=== PATIENT | female | born 1950 | race Caucasian/White ===

== ENCOUNTER 2016-08-21 14:25 | Emergency (ER) | payer MEDICARE, OTHER ==
[~2016-08-21] VITALS: Ht 157.5 cm; Wt 71.2 kg
[~2016-08-21 14:25] MED LIST: ACET65TA OR; ASPI81TA3 OR; HCTZ PO; HYDROCODONE PO; PAXI10TA OR; PERC5TAB8 OR
[2016-08-21] MEDS ORDERED: HYDR25TAB PO (14:45)
[2016-08-21] MEDS ORDERED: PAXI30TA11 PO ×3 (14:45→15:45)
[2016-08-21] MEDS ORDERED: METO50TA2 PO (14:45)
[2016-08-21] MEDS ORDERED: SIMV40TA2 PO (14:45)
[2016-08-21 15:47] VITALS: BP 122/66
== END 2016-08-21 15:48 | disposition home or self-care (01) ==
LOC: M ED 15:14
DX: Z76.0 Encounter for issue of repeat prescription (principal); F33.9 Major depressive disorder, recurrent, unspecified; F41.9 Anxiety disorder, unspecified; I10 Essential (primary) hypertension; K21.9 Gastro-esophageal reflux disease without esophagitis; M54.5 Low back pain; K44.9 Diaphragmatic hernia without obstruction or gangrene; Z79.899 Other long term (current) drug therapy; Z79.82 Long term (current) use of aspirin; Z87.891 Personal history of nicotine dependence

== ENCOUNTER 2016-09-06 12:19 | Emergency (ER) | payer MEDICARE ==
[~2016-09-06] VITALS: Ht 157.5 cm; Wt 70.8 kg
[~2016-09-06 12:19] MED LIST changes: +HYDR25TAB PO; +METO50TA2 PO; +PAXI30TA11 PO; +SIMV40TA2 PO
[2016-09-06] MEDS ORDERED: FLUORESCEIN OPHTH 1 MG STRIP OS ONE (12:45)
[2016-09-06] MEDS ORDERED: TETRACAINE 0.5% OPHTH SOLN 4ML OS ONE (12:45)
[2016-09-06] MEDS ORDERED: ERYTOIN8 OS (13:11)
[2016-09-06] MEDS ORDERED: PARO30TA PO (13:11)
[2016-09-06] MEDS ORDERED: ERYTHROMYCIN OPHTH OINT OS ONE (13:15)
[2016-09-06 13:22] VITALS: BP 131/89
== END 2016-09-06 13:23 | disposition home or self-care (01) ==
LOC: M ED 13:13
DX: Z76.0 Encounter for issue of repeat prescription (principal); S05.02XD Injury of conjunctiva and corneal abrasion without foreign body, left eye, subsequent encounter; F17.210 Nicotine dependence, cigarettes, uncomplicated; X58.XXXD Exposure to other specified factors, subsequent encounter

== ENCOUNTER → 2020-02-26 | Outpatient (CLI) | payer MEDICARE, OTHER ==
[~2020-02-26] MED LIST changes: +ANAS1TAB2 PO; +ERYTOIN8 OS; -METO50TA2 PO; +METO50TA7 PO; +PARO30TA65 PO; -SIMV40TA2 PO; +SIMV40TA20 PO
--- NOTE | 2020-03-12 14:48 | REPMRS ---
Patient History The patient states she has not had a clinical breast exam in over a year. Patient has history of cancer in the right breast at age 69 and has history of cancer in the right breast at age 68. Family history of breast cancer at age 50 or over in sister, breast cancer in niece. Malignant excisional biopsy of the right breast, 2019. Radiation therapy of the right breast, 2019. Taking unspecified hormones for 1 year. Digital Woman Screen Mammo: February 26, 2020 - Exam #: [id number] Bilateral CC and MLO view(s) were taken. Technologist: Chata Mcarthur, Technologist Prior study comparison: August 02, 2018, right breast diagnostic unilateral mammo, performed at [address] January 24, 2018, bilateral digital mammo screening bilat, performed at [address] August 06, 2009, bilateral digital mammo screening bilat, performed at [facility]. March 30, 2006, bilateral screening mammogram, performed at [facility]. FINDINGS: There are scattered fibroglandular densities. The Volpara volumetric breast density category is:B. There are stable post treatment changes in the right breast. There has been no change in the appearance of the mammogram from the prior studies. There is a mild amount of scattered fibroglandular density which is fairly symmetric. There is no interval development of dominant mass, architectural distortion, or grouped microcalcification suggestive of malignancy. 3-D tomosynthesis shows no additional findings. Assessment: BI-RADS/ACR category 2 mammogram. Benign Findings. Recommendation Routine screening mammogram of both breasts in 1 year (for women over age 40). This mammogram was interpreted with the aid of an FDA-approved computer-aided dectection system. Electronically Signed By: Davian Arias MD 03/12/20 [id number]
== END ==
LOC: M WHC 12:24
PROVIDERS: ATTEND Internal Medicine Hematology & Oncology
DX: Z12.31 Encounter for screening mammogram for malignant neoplasm of breast (principal); Z85.3 Personal history of malignant neoplasm of breast

== ENCOUNTER → 2020-03-04 | Outpatient (CLI) | payer MEDICARE, OTHER ==
--- NOTE | 2020-03-04 13:12 | REP ---
INDICATION: LOW DOSE LUNG SCREENING/BREAST CANCER COMPARISON: None. TECHNIQUE: Axial noncontrast images from the thoracic inlet to the upper abdomen using low-dose lung screening technique (LDCT). FINDINGS: Bilateral lung de la garza are well aerated and essentially symmetric/clear. No consolidation, suspicious nodule or mass lesion. Tracheobronchial tree is patent. No effusion or pneumothorax. IMPRESSION: Lung-RADS category 1. Management recommendations include annual low-dose CT surveillance. <Electronically signed by Darion Bray > 03/04/20 [id number]
== END ==
LOC: M RAD 12:40
PROVIDERS: ATTEND Internal Medicine Hematology & Oncology
DX: Z12.2 Encounter for screening for malignant neoplasm of respiratory organs (principal); C50.919 Malignant neoplasm of unspecified site of unspecified female breast; Z87.891 Personal history of nicotine dependence

== ENCOUNTER → 2020-04-08 | Outpatient (CLI) | payer MEDICAID, MEDICARE, OTHER ==
[~2020-04-08] MED LIST changes: +DEBR6.5S4 OTIC; +HYDR-3490 PO; -HYDR25TAB PO
--- NOTE | 2020-04-08 16:21 | DEXAMM ---
INDICATION: HX BREAST CA. Status post bilateral hip replacement. COMPARISON: Comparison study April 04, 2018 and August 06, 2009.. TECHNIQUE: Bone density was measured using dual-energy x-ray absorptionmetry (DEXA). FINDINGS: AP SPINE L1-L4 BMD 1.159 g/cm2 Young Adult T-Score -0.3 Age Matched Z-Score 1.4. LT FOREARM, TOTAL BMD 0.825 g/cm2 Young Adult T-Score -0.6 Age Matched Z-Score 1.2. IMPRESSION: There is normal bone density of the spine. There is low bone density of the left forearm. The density of the spine has decreased 9.2% since the initial exam on August 06, 2009. The density of the spine increased 17.9% since most recent exam on April 04, 2018. FOLLOW-UP: Recommendation for the next bone density exam: 2 years. <Electronically signed by Davian Arias > 04/08/20 [id number]
== END ==
LOC: M WHC 11:15
PROVIDERS: ATTEND Internal Medicine Hematology & Oncology
DX: M85.832 Other specified disorders of bone density and structure, left forearm (principal); Z85.3 Personal history of malignant neoplasm of breast; Z96.643 Presence of artificial hip joint, bilateral

== ENCOUNTER → 2020-05-27 | Outpatient (REF) | payer MEDICARE, MEDICAID | LOC: M SFHCWAGY 12:57 | PROVIDERS: ATTEND Nurse Practitioner Women's Health | DX: Z12.4 Encounter for screening for malignant neoplasm of cervix (principal); R87.615 Unsatisfactory cytologic smear of cervix | CPT/HCPCS: 87624; G0101; G0123 ==

== ENCOUNTER → 2020-06-23 | Outpatient (REF) | payer MEDICARE, MEDICAID ==
[2020-06-23 12:55] LABS: APPEARANCE, URINE CLEAR (CLEAR); BACTERIA, URINE AUTO NEGATIVE (NEGATIVE); BILIRUBIN, URINE AUTO NEGATIVE (NEGATIVE); BLOOD, URINE BLOOD 1+ (NEGATIVE); COLOR, URINE YELLOW (YELLOW); GLUCOSE, URINE (UA) AUTO NEGATIVE (NEGATIVE); KETONE, URINE AUTO NEGATIVE (NEGATIVE); LEUKOCYTE ESTERASE, URINE AUTO NEGATIVE (NEGATIVE); MUCUS, URINE SMALL (NEGATIVE); NITRITE, URINE AUTO NEGATIVE (NEGATIVE); PROTEIN, URINE AUTO NEGATIVE (NEGATIVE); RBC, URINE AUTO 7 /HPF (0-3); SQUAMOUS EPITHELIAL CELL UR AU 0 /HPF (0-6); UROBILINOGEN, URINE AUTO 0.2 mg/dL (0.0-2.0); WBC, URINE AUTO 0 /HPF (0-3)
[2020-06-23 14:21] LABS: BASO # 0.1 10^3/uL (0.0-0.2); BASO % 1.3 % (0.0-1.0); EOS # 0.2 10^3/uL (0.0-0.5); EOS % 4.9 % (0.0-3.0); HEMATOCRIT 38.6 % (36.0-47.0); HEMOGLOBIN 12.3 g/dl (12.0-15.5); LYMPH # 1.7 10^3/uL (1.5-5.0); LYMPH % 37.9 % (24.0-44.0); MEAN CORPUSCULAR HEMOGLOBIN 27.9 pg (27.0-33.0); MEAN CORPUSCULAR HGB CONC 31.9 g/dl (32.0-36.5); MEAN CORPUSCULAR VOLUME 87.5 fl (80.0-96.0); MONO # 0.4 10^3/uL (0.0-0.8); MONO % 9.3 % (2.0-8.0); NEUTROPHILS # 2.1 10^3/uL (1.5-8.5); NEUTROPHILS % 46.6 % (36.0-66.0); PLATELET COUNT, AUTOMATED 215 10^3/uL (150-450); RED BLOOD COUNT 4.41 10^6/uL (4.00-5.40); WHITE BLOOD COUNT 4.5 10^3/uL (4.0-10.0)
[2020-06-23 14:50] LABS: ALBUMIN 3.7 GM/DL (3.2-5.2); ALT/SGPT 20 U/L (12-78); BILIRUBIN,TOTAL 0.4 MG/DL (0.2-1.0); BLOOD UREA NITROGEN 17 MG/DL (7-18); CALCIUM LEVEL 8.7 MG/DL (8.8-10.2); CARBON DIOXIDE LEVEL 30 MEQ/L (21-32); CHLORIDE LEVEL 110 MEQ/L (98-107); CHOLESTEROL LEVEL 172 MG/DL (<200); CHOLESTEROL RISK RATIO 2.774 (<5); CREATININE FOR GFR 0.66 MG/DL (0.55-1.30); FREE T4 0.97 NG/DL (0.76-1.46); GLOMERULAR FILTRATION RATE > 60.0 (>45); GLUCOSE, FASTING 105 MG/DL (70-100); HDL CHOLESTEROL 62 MG/DL (>40); LDL CHOLESTEROL 94 MG/DL (<100); NON-HDL-C 110 MG/DL; POTASSIUM SERUM 4.4 MEQ/L (3.5-5.1); SODIUM LEVEL 144 MEQ/L (136-145); TOTAL 25(OH) VITAMIN D 16.6 NG/ML (30.0-100.0); TOTAL PROTEIN 6.7 GM/DL (6.4-8.2); TRIGLYCERIDES LEVEL 79 MG/DL (<150)
[2020-06-23 14:54] LABS: HEMOGLOBIN A1c 5.6 %
== END ==
LOC: M LAB REF 12:28
PROVIDERS: ATTEND Nurse Practitioner Family
DX: J44.9 Chronic obstructive pulmonary disease, unspecified (principal); F17.200 Nicotine dependence, unspecified, uncomplicated; E78.5 Hyperlipidemia, unspecified; I10 Essential (primary) hypertension; Z79.899 Other long term (current) drug therapy

== ENCOUNTER → 2020-07-06 | Outpatient (CLI) | payer MEDICARE, MEDICAID | LOC: M LABSMTC 09:43 | PROVIDERS: ATTEND Anesthesiology | DX: Z01.812 Encounter for preprocedural laboratory examination (principal); Z11.52 Encounter for screening for COVID-19 ==

== ENCOUNTER → 2020-09-07 | Outpatient (CLI) | payer MEDICARE, MEDICAID | LOC: M LABSMTC 08:00 | PROVIDERS: ATTEND Anesthesiology | DX: Z11.52 Encounter for screening for COVID-19 (principal) ==

== ENCOUNTER 2020-09-12 13:02 | Day surgery (SDC) | payer MEDICARE, MEDICAID ==
[~2020-09-12] VITALS: Ht 157.5 cm; Wt 64.9 kg
[~2020-09-12 13:02] MED LIST changes: +NS 1,000 ML IV ONE
--- NOTE | 2020-09-12 14:57 | ROOR ---
Patient Name: Aletha Rae Procedure Date: 09/12/2020 2:17 PM Date of : 1950 Age: 70 Room: [facility] Gender: Female Note Status: Finalized Procedure: Colonoscopy Indications: Screening for colorectal malignant neoplasm Providers: Masoud Kaiser MD Referring MD: Beata Ventura NP Requesting Provider: Medicines: Monitored Anesthesia Care Complications: No immediate complications. Procedure: Pre-Anesthesia Assessment: - The heart rate, respiratory rate, oxygen saturations, blood pressure, adequacy of pulmonary ventilation, and response to care were monitored throughout the procedure. The Colonoscope was introduced through the anus and advanced to the terminal ileum, with identification of the appendiceal orifice and IC valve. The colonoscopy was performed without difficulty. The patient tolerated the procedure well. The quality of the bowel preparation was good. Findings: The digital rectal exam findings include decreased sphincter tone. A 5 mm polyp was found in the splenic flexure. The polyp was sessile. The polyp was removed with a hot snare. Resection and retrieval were complete. Two semi-pedunculated polyps were found in the distal sigmoid colon. The polyps were 5 to 10 mm in size. These polyps were removed with a hot snare. Resection and retrieval were complete. Internal hemorrhoids were found during retroflexion. The hemorrhoids were moderate. A few medium-mouthed diverticula were found in the sigmoid colon. The exam was otherwise without abnormality on direct and retroflexion views. Impression: - Decreased sphincter tone found on digital rectal exam. - One 5 mm polyp at the splenic flexure, removed with a hot snare. Resected and retrieved. - Two 5 to 10 mm polyps in the distal sigmoid colon, removed with a hot snare. Resected and retrieved. - Mild Diverticulosis in the sigmoid colon. - Moderate Internal hemorrhoids. - The examination was otherwise normal on direct and retroflexion views. Recommendation: - Repeat colonoscopy in 3 - 5 years for surveillance based on pathology results. - Telephone endoscopist for pathology results in 2 weeks. Procedure Code(s): --- Professional --- 88972, Colonoscopy, flexible; with removal of tumor(s), polyp(s), or other lesion(s) by snare technique Diagnosis Code(s): --- Professional --- K57.30, Diverticulosis of large intestine without perforation or abscess without bleeding K64.8, Other hemorrhoids K62.89, Other specified diseases of anus and rectum Z12.11, Encounter for screening for malignant neoplasm of colon K63.5, Polyp of colon CPT copyright 2019 [employer]. All rights reserved. The codes documented in this report are preliminary and upon large sheetfed press operator review may be revised to meet current compliance requirements. Masoud Kaiser MD Masoud Kaiser MD 09/12/2020 2:57:08 PM Electronically signed by Masoud Kaiser MD Number of Addenda: 0 Note Initiated On: 09/12/2020 2:17 PM Estimated Blood Loss: Estimated blood loss: none.
[2020-09-12 15:12] VITALS: BP 145/70
== END 2020-09-12 15:14 | disposition home or self-care (01) ==
LOC: M OPP 13:02
PROVIDERS: ATTEND Internal Medicine Gastroenterology
DX: Z12.11 Encounter for screening for malignant neoplasm of colon (principal); K57.30 Diverticulosis of large intestine without perforation or abscess without bleeding; K63.5 Polyp of colon; K64.8 Other hemorrhoids; K62.89 Other specified diseases of anus and rectum; F17.210 Nicotine dependence, cigarettes, uncomplicated; Z85.3 Personal history of malignant neoplasm of breast; Z92.3 Personal history of irradiation; Z79.899 Other long term (current) drug therapy

== ENCOUNTER 2020-12-24 11:38 | Observation (INO) | payer MEDICARE, MEDICAID ==
[~2020-12-24] VITALS: Ht 157.5 cm; Wt 64.5 kg
[~2020-12-24 11:38] MED LIST changes: -NS 1,000 ML IV ONE
--- OUTSIDE RECORDS SUMMARY | 2020-12-24 11:50 | CCD ---
Author Author [facility] Organization [facility] Address Unknown Phone Unavailable Care Team Providers Care Order Entry Clerk Name Role Phone Alpa Henriquez MD Unavailable Unavailable Alpa Henriquez MD Unavailable Unavailable Alpa Henriquez MD Unavailable Unavailable Alpa Henriquez MD Unavailable Unavailable Alpa Henriquez MD Unavailable Unavailable Alpa Henriquez MD Unavailable Unavailable Alpa Henriquez MD Unavailable Unavailable Alpa Henriquez MD Unavailable Unavailable Alpa Henriquez MD Unavailable Unavailable Alpa Henriquez MD Unavailable Unavailable Alpa Henriquez MD Unavailable Unavailable Alpa Henriquez MD Unavailable Unavailable Alpa Henriquez MD Unavailable Unavailable Alpa Henriquez MD Unavailable Unavailable Alpa Henriquez MD Unavailable Unavailable Alpa Henriquez MD Unavailable Unavailable Alpa Henriquez MD Unavailable Unavailable Alpa Henriquez MD Unavailable Unavailable Alpa Henriquez MD Unavailable Unavailable Alpa Henriquez MD Unavailable Unavailable Alpa Henriquez MD Unavailable Unavailable Alpa Henriquez MD Unavailable Unavailable Alpa Henriquez MD Unavailable Unavailable Alpa Henriquez MD Unavailable Unavailable Alpa Henriquez MD Unavailable Unavailable Alpa Henriquez MD Unavailable Unavailable Alpa Henriquez MD Unavailable Unavailable Alpa Henriquez MD Unavailable Unavailable Alpa Henriquez MD Unavailable Unavailable Alpa Henriquez MD Unavailable Unavailable Alpa Henriquez MD Unavailable Unavailable Alpa Henriquez MD Unavailable Unavailable Alpa Henriquez MD Unavailable Unavailable Alpa Henriquez MD Unavailable Unavailable Alpa Henriquez MD Unavailable Unavailable Alpa Henriquez MD Unavailable Unavailable Alpa Henriquez MD Unavailable Unavailable Alpa Henriquez MD Unavailable Unavailable Alpa Henriquez MD Unavailable Unavailable Alpa Henriquez MD Unavailable Unavailable Alpa Henriquez MD Unavailable Unavailable Alpa Henriquez MD Unavailable Unavailable Alpa Henriquez MD Unavailable Unavailable Alpa Henriquez MD Unavailable Unavailable Alpa Henriquez MD Unavailable Unavailable Alpa Henriquez MD Unavailable Unavailable Alpa Henriquez MD Unavailable Unavailable Alpa Henriquez MD Unavailable Unavailable Alpa Henriquez MD Unavailable Unavailable Alpa Henriquez MD Unavailable Unavailable lApa Henriquez MD Unavailable Unavailable Alpa Henriquez MD Unavailable Unavailable Alpa Henriquez MD Unavailable Unavailable Alpa Henriquez MD Unavailable Unavailable Alpa Henriquez MD Unavailable Unavailable Alpa Henriquez MD Unavailable Unavailable Alpa Henriquez MD Unavailable Unavailable Alpa Henriquez MD Unavailable Unavailable Alpa Henriquez MD Unavailable Unavailable Alpa Henriquez MD Unavailable Unavailable Alpa Henriquez MD Unavailable Unavailable Alpa Henriquez MD Unavailable Unavailable Alpa Henriquez MD Unavailable Unavailable Alpa Henriquez MD Unavailable Unavailable Alpa Henriquez MD Unavailable Unavailable Alpa Henriquez MD Unavailable Unavailable Alpa Henriquez MD Unavailable Unavailable Alpa Henriquez MD Unavailable Unavailable Alpa Henriquez MD Unavailable Unavailable Alpa Henriquez MD Unavailable Unavailable Alpa Henriquez MD Unavailable Unavailable Alpa Henriquez MD Unavailable Unavailable Alpa Henriquez MD Unavailable Unavailable Alpa Henriquez MD Unavailable Unavailable Alpa Henriquez MD Unavailable Unavailable Alpa Henriquez MD Unavailable Unavailable Alpa Henriquez MD Unavailable Unavailable Alpa Henriquez MD Unavailable Unavailable Alpa Henriquez MD Unavailable Unavailable Alpa Henriquez MD Unavailable Unavailable Alpa Henriquez MD Unavailable Unavailable Alpa Henriquez MD Unavailable Unavailable Alpa Henriquez MD Unavailable Unavailable Alpa Henriquez MD Unavailable Unavailable Alpa Henriquez MD Unavailable Unavailable Alpa Henriquez MD Unavailable Unavailable Alpa Henriquez MD Unavailable Unavailable Alpa Henriquez MD Unavailable Unavailable Alpa Henriquez MD Unavailable Unavailable Alpa Henriquez MD Unavailable Unavailable Alpa Henriquez MD Unavailable Unavailable Alpa Henriquez MD Unavailable Unavailable Alpa Henriquez MD Unavailable Unavailable Lorenzo, A Beata OB/GYN PHYSICIAN Unavailable Unavailable Lorenzo, A Beata OB/GYN PHYSICIAN Unavailable Unavailable Lorenzo, A Beata OB/GYN PHYSICIAN Unavailable Unavailable Lorenzo, A Beata OB/GYN PHYSICIAN Unavailable Unavailable Lorenzo, A Beata OB/GYN PHYSICIAN Unavailable Unavailable Lorenzo, A Beata OB/GYN PHYSICIAN Unavailable Unavailable Purchase, A Beata OB/GYN PHYSICIAN Unavailable Unavailable Purchase, A Beata OB/GYN PHYSICIAN Unavailable Unavailable Purchase, A Beata OB/GYN PHYSICIAN Unavailable Unavailable Purchase, A Beata OB/GYN PHYSICIAN Unavailable Unavailable Purchase, A Ebata OB/GYN PHYSICIAN Unavailable Unavailable Purchase, A Beata OB/GYN PHYSICIAN Unavailable Unavailable Purchase, A Beata OB/GYN PHYSICIAN Unavailable Unavailable Purchase, A Beata OB/GYN PHYSICIAN Unavailable Unavailable Purchase, A Beata OB/GYN PHYSICIAN Unavailable Unavailable Purchase, A Beata OB/GYN PHYSICIAN Unavailable Unavailable Purchase, A Beata OB/GYN PHYSICIAN Unavailable Unavailable Purchase, A Beata OB/GYN PHYSICIAN Unavailable Unavailable Purchase, A Beata OB/GYN PHYSICIAN Unavailable Unavailable Purchase, A Beata OB/GYN PHYSICIAN Unavailable Unavailable Purchase, A Beata OB/GYN PHYSICIAN Unavailable Unavailable Purchase, A Beata OB/GYN PHYSICIAN Unavailable Unavailable Purchase, A Beata OB/GYN PHYSICIAN Unavailable Unavailable Purchase, A Beata OB/GYN PHYSICIAN Unavailable Unavailable Purchase, A Beata OB/GYN PHYSICIAN Unavailable Unavailable Purchase, A Beata OB/GYN PHYSICIAN Unavailable Unavailable Purchase, A Beata OB/GYN PHYSICIAN Unavailable Unavailable Purchase, A Beata OB/GYN PHYSICIAN Unavailable Unavailable Purchase, A Beata OB/GYN PHYSICIAN Unavailable Unavailable Purchase, A Beata OB/GYN PHYSICIAN Unavailable Unavailable Purchase, A Beata OB/GYN PHYSICIAN Unavailable Unavailable Mccall, Clari [employer] Unavailable Unavailable Mccall, Clari [employer] Unavailable Unavailable Mccall, Clari [employer] Unavailable Unavailable Mccall, Clari [employer] Unavailable Unavailable Mccall, Clari [employer] Unavailable Unavailable Mccall, Clari [employer] Unavailable Unavailable Mccall, Clari [employer] Unavailable Unavailable Mccall, Clari [employer] Unavailable Unavailable Mccall, Clari [employer] Unavailable Unavailable Mccall, Clari [employer] Unavailable Unavailable Mccall, Clari [employer] Unavailable Unavailable Mccall, Clari [employer] Unavailable Unavailable Mccall, Clari [employer] Unavailable Unavailable Mccall, Clari [employer] Unavailable Unavailable Mccall, Clari [employer] Unavailable Unavailable Mccall, Clari [employer] Unavailable Unavailable Mccall, Clari [employer] Unavailable Unavailable Mccall, Clari [employer] Unavailable Unavailable Mccall, Clari [employer] Unavailable Unavailable Mccall, Clari [employer] Unavailable Unavailable Mccall, Clari [employer] Unavailable Unavailable Mccall, Clari [employer] Unavailable Unavailable Mccall, Clari [employer] Unavailable Unavailable Mccall, Clari [employer] Unavailable Unavailable Mccall, Clari [employer] Unavailable Unavailable Mccall, Clari [employer] Unavailable Unavailable Mccall, Clari [employer] Unavailable Unavailable Mccall, Clari [employer] Unavailable Unavailable Mccall, Clari [employer] Unavailable Unavailable Mccall, Clari [employer] Unavailable Unavailable Mccall, Clari [employer] Unavailable Unavailable Mccall, Clari [employer] Unavailable Unavailable Mccall, Clari [employer] Unavailable Unavailable Mccall, Clari [employer] Unavailable Unavailable Mccall, Clari [employer] Unavailable Unavailable Mccall, Clari [employer] Unavailable Unavailable Mccall, Clari [employer] Unavailable Unavailable Mccall, Clari [employer] Unavailable Unavailable Mccall, Clari [employer] Unavailable Unavailable Mccall, Clari [employer] Unavailable Unavailable Mccall, Clari [employer] Unavailable Unavailable Mccall, Clari [employer] Unavailable Unavailable Mccall, Clari [employer] Unavailable Unavailable Mccall, Clari [employer] Unavailable Unavailable Mccall, Clari [employer] Unavailable Unavailable Mccall, Clari [employer] Unavailable Unavailable Mccall, Clari [employer] Unavailable Unavailable Mccall, Clari [employer] Unavailable Unavailable Mccall, Clari [employer] Unavailable Unavailable Mccall, Clari [employer] Unavailable Unavailable Mccall, Clari [employer] Unavailable Unavailable Mccall, Clari [employer] Unavailable Unavailable Mccall, Clari [employer] Unavailable Unavailable Mccall, Clari [employer] Unavailable Unavailable Mccall, Clari [employer] Unavailable Unavailable Mccall, Clari [employer] Unavailable Unavailable Mccall, Clari [employer] Unavailable Unavailable Mccall, Clari [employer] Unavailable Unavailable Mccall, Clari [employer] Unavailable Unavailable Mccall, Clari [employer] Unavailable Unavailable Mccall, Clari [employer] Unavailable Unavailable Mccall, Clari [employer] Unavailable Unavailable Mccall, Clari [employer] Unavailable Unavailable Mccall, Clari [employer] HAND[employer] Unavailable Unavailable Mccall, Clari D[employer] HANDS Unavailable Unavailable Mccall, Clari [employer] Unavailable Unavailable Mccall, Clari [employer] Unavailable Unavailable Mccall, Clari [employer] Unavailable Unavailable Mccall, Clari [employer] Unavailable Unavailable Re-disclosure Warning The records that you are about to access may contain information from federally-assisted alcohol or drug abuse programs. If such information is present, then the following federally mandated warning applies: This information has been disclosed to you from records protected by federal confidentiality rules (42 CFR part 2). The federal rules prohibit you from making any further disclosure of this information unless further disclosure is expressly permitted by the written consent of the person to whom it pertains or as otherwise permitted by 42 CFR part 2. A general authorization for the release of medical or other information is NOT sufficient for this purpose. The Federal rules restrict any use of the information to criminally investigate or prosecute any alcohol or drug abuse patient.The records that you are about to access may contain highly sensitive health information, the redisclosure of which is protected by Article 27-F of the [facility] Public Health law. If you continue you may have access to information: Regarding HIV / AIDS; Provided by facilities licensed or operated by the [facility] Office of Mental Health; or Provided by the [facility] Office for People With Developmental Disabilities. If such information is present, then the following [facility] mandated warning applies: This information has been disclosed to you from confidential records which are protected by state law. State law prohibits you from making any further disclosure of this information without the specific written consent of the person to whom it pertains, or as otherwise permitted by law. Any unauthorized further disclosure in violation of state law may result in a fine or long-term sentence or both. A general authorization for the release of medical or other information is NOT sufficient authorization for further disc losure. Allergies and Adverse Reactions Type Description Substance Reaction Status Data Source(s ) Propensity to adverse reactions NO KNOWN ALLERGIES NO KNOWN ALLERGIES [facility] Encounters Encounter Providers Location Date Indications Data Source(s ) Jose Henriquez MD: [address] [place] [address], Ph. Attender: Jose Henriquez MD [facility] Medical 06/23/2020 12:00:00 AM EDT CHRIS ([facility]) ( NPGYN) [facility] MEDICAL RECORDS TECH [address] [place] [address] 05/27/2020 12:00:00 AM EDT eCW1 ([facility]) [facility] [address] [place] [address], Ph. Attender: Beata RAPP [facility] Medical 05/06/2020 12:00:00 AM EST CHRIS ([facility]) [facility] [address] [place] [address], Ph. Attender: Beata RAPP [facility] Medical 05/06/2020 12:00:00 AM EST CHRIS ([facility]) Outpatient Attender: Clari Mccall [facility] 12/24/2019 01:03:01 PM EDT [facility] Immunizations Vaccine Date Status Description Data Source(s) New in 2011. IIV4 05/06/2020 01:04:00 PM EST completed 10.5 mL [facility] ([facility]) New in 2011. IIV4 05/06/2020 01:04:00 PM EST completed .5 mL [facility] ([facility]) Medications Medication Brand Name Start Date Product Form Dose Route Admi nistrative Instructions Pharmacy Instructions Status Indications Reaction Description Data Source(s) Magnesium Hydroxide 80 MG/ML Oral Suspension Milk Of Magnesi a 05/20/2020 12:00:00 AM EST ORAL active M EDENT ([facility], ) Suprep Bowel Prep Kit Suprep Bowel Prep Kit 05/20/2020 12:00:00 AM EST active MEDENT ([facility], ) Insurance Providers Payer name Policy type / Coverage type Policy ID Covered alliance party ID Covered alliance party's relationship to novoa Policy [place] Plan Information [facility] I [id number] Self [id number] Medicaid P [id number] S [id number] MEDICAID M [id number] Self [id number] [facility] [id number] SP [id number] [facility]LY [facility] COMMUNITY PLAN MCDO [id number] SP [id number] [facility] Comm Plan Medicaid F [id number] SELF [id number] [facility] [id number] SP [id number] [facility] Comm Plan Medicaid F [id number] SELF [id number] MEDICARE [id number] SP [id number] A MEDICARE [id number] SP [id number] Managed Care BCBS S [id number] S [id number] Self Pay O none S none SELF PAY UNAVAILABLE SP UNAVAILA BLE BLUE CROSS MALHOTRA PLAN [id number] SP [id number] MEDICAID [id number] SP [id number] [place] [id number] MEDICARE [id number] SP [id number] [place] [id number] SP [id number] [place] [id number] SP [id number] COMMUNITY PLAN MCDO [id number] SP [id number] MEDICAID UNAVAILABLE UNAVAILA BLE MEDICARE [id number] SP [id number] [facility] O UNAVAILABLE [id number] C UNAVAILABLE [facility]) P [id number] S [id number] MEDICAID P [id number] S [id number] Problems, Conditions, and Diagnoses Code Display Name Description Problem Type Effective Dates Data Source(s) Z85.3 [id number] History of right breast cancer Problem 05/27/2020 12:00:00 AM EDT eCW1 ([facility]) Z90.710 [id number] Hx of hysterectomy Problem 05/27/2020 12:00: 00 AM EDT eCW1 ([facility]) Z85.44 [id number] History of cancer of vulva Problem 12:00:00 AM EDT eCW1 ([facility]) [id number] Essential hypertension Essential hypertension Problem 05/20/2020 12:00:00 AM EST SID[facility]ARTH ([facility]) [id number] Hypertensive disorder Hypertensive Disorder Problem 12/27/2019 05:31:34 PM EDT CHRIS ([facility]) [id number] Hyperlipidemia Hyperlipidemia Problem 12/27/2019 05:31: 34 PM EDT CHRIS ([facility]) [id number] Hypertensive disorder Hypertensive Disorder Problem 12/27/2019 05:31:34 PM EDT CHRIS ([facility]) [id number] Hyperlipidemia Hyperlipidemia Problem 12/27/2019 05:31: 34 PM EDT CHR[facility] ([facility]) [id number] SNOMED CT Concept SNOMED CT Concept Problem 12/26 05:31:33 PM EDT CHRIS ([facility]) [id number] Depressive disorder Depressive Disorder Problem 1 05:31:33 PM EDT [facility] ([facility]) [id number] SNOMED CT Concept SNOMED CT Concept Problem 12/26 05:31:33 PM EDT CHRIS ([facility]) [id number] Depressive disorder Depressive Disorder Problem 1 05:31:33 PM EDT BES[facility] ([facility]) Surgeries/Procedures Procedure Description Date Indications Data Source(s) Colonoscopy W/ Poly 09/12/2020 12:00:00 AM EDT [facility] ([facility], ) Results ID Date Data Source [id number] 09/12/2020 02:31:00 PM EDT [facility] ([facility]) Name Value Range Interpretation Code Description Data Mirella rce(s) Supporting Document(s) Surgical pathology study Laboratory test result [facility] ([facility]) FINAL DIAGNOSIS A - Colon, splenic flexure polyp, polypectomy: Hyperplastic polyps. B - Colon, sigmoid polyps, polypectomy: One fragment of tubular adenoma. Hyperplastic polyp also present. 09/17/2020 - 954 CLINICAL DIAGNOSIS Screening 09/16/2020 - 1337 GROSS DIAGNOSIS A - Received in formalin labeled "splenic flexure polyp" and consists of one sol fragment measuring 0.3 x 0.2 x 0.2 cm. All in one. B - Received in formalin labeled "sigmoid polyps" and consists of two sol polypoid fragments measuring 0.7 x 0.5 x 0.4 cm. in aggregate. All in one. -SVY 09/16/20201337 Signed LAURA KEVIN MD 09/17/2020 1155 ID Date Data Source [id number] 09/07/2020 08:00:00 AM EDT [facility] Name Value Range Interpretation Code Description Data Mirella rce(s) Supporting Document(s) SARS-CoV-2 (COVID-19) RNA [Presence] in Respiratory specimen by AMINATA with probe detection Not Detected [facility] This lab was ordered by [facility] and reported by [facility]. ID Date Data Source [id number] 07/06/2020 09:40:00 AM EDT [facility] Name Value Range Interpretation Code Description Data Mirella rce(s) Supporting Document(s) SARS-CoV-2 (COVID-19) RNA [Presence] in Respiratory specimen by AMINATA with probe detection Not Detected [facility] This lab was ordered by [facility] and reported by [facility]. ID Date Data Source [id number] 06/23/2020 08:37:00 AM EDT [facility] ([facility]) Name Value Range Interpretation Code Description Data Mirella rce(s) Supporting Document(s) ID Date Data Source [id number] 06/23/2020 08:37:00 AM EDT CHRIS ([facility]) Name Value Range Interpretation Code Description Data Mirella rce(s) Supporting Document(s) estimated average glucose 114 mg/dL 60-110 Above high norm al Estimated Average Glucose [facility] ([facility]) Hemoglobin A1c/Hemoglobin.total in Blood 5.6 % Hemoglobin a1C [facility]) ID Date Data Source [id number] 06/23/2020 08:37:00 AM EDT [facility] ([facility]) Name Value Range Interpretation Code Description Data Mirella rce(s) Supporting Document(s) total 25(oh) vitamin D 16.6 NG/mL 30.0-100.0 Below low normal T otal 25(Oh) Vitamin D [facility]) ID Date Data Source [id number] 06/23/2020 08:37:00 AM EDT [facility]) Name Value Range Interpretation Code Description Data Mirella rce(s) Supporting Document(s) thyroid stimulating hormone 2.110 uIU/mL 0.358-3.740 Thyroid Stimulating Hormone [facility]) free T4 0.97 NG/dL 0.76-1.46 Free T4 [facility]) ID Date Data Source [id number] 06/23/2020 08:37:00 AM EDT [facility]) Name Value Range Interpretation Code Description Data Mirella rce(s) Supporting Document(s) HDL cholesterol 62 mg/dL >40 HDL Cholesterol ATHE NA ([facility]) triglycerides level 79 mg/dL <150 Triglycerides Le dilia CHRIS ([facility]) cholesterol level 172 mg/dL <200 Cholesterol Level CHRIS ([facility]) cholesterol risk ratio <5 Cholesterol R isk Ratio [facility] ([facility]) Cholesterol in LDL [Mass/volume] in Serum or Plasma 94 mg/dL <1 00 LDL Cholesterol [facility] ([facility]) non-HDL-C 110 mg/dL Non-hdl-c [facility] ([facility]) ID Date Data Source [id number] 06/23/2020 08:37:00 AM EDT CHRIS ([facility]) Name Value Range Interpretation Code Description Data Mirella rce(s) Supporting Document(s) glucose, fasting 105 mg/dL 70-100 Above high normal Glucose, Fas ting CHRIS ([facility]) sodium level 144 mEq/L 136-145 Sodium Level [facility] ([facility]) creatinine for GFR 0.66 mg/dL 0.55-1.30 Creatinine for GF R CHR[facility] ([facility]) glomerular filtration rate > 60.0 >45 Glomerula r Filtration Rate CHRIS ([facility]) blood urea nitrogen 17 mg/dL 7-18 Blood Urea Nitro gen CHRIS ([facility]) potassium serum 4.4 mEq/L 3.5-5.1 Potassium Serum ATHE NA ([facility]) anion gap 4 mEq/L 8-16 Below low normal Anion Gap CHRIS ( [facility]) carbon dioxide level 30 mEq/L 21-32 Carbon Dioxide Level CHRIS ([facility]) chloride level 110 mEq/L 98-107 Above high normal Chloride Level CHRIS ([facility]) ALT/SGPT 20 U/L 12-78 ALT/SGPT [facility] ([facility]) calcium level 8.7 mg/dL 8.8-10.2 Below low normal Calcium Level AT [facility]) AST/SGOT 16 U/L 7-37 AST/SGOT CH[facility] ([facility]) albumin 3.7 gm/dL 3.2-5.2 Albumin CHRIS ([facility]) alkaline phosphatase 87 U/L 45-117 Alkaline Phosph atase CHR[facility] ([facility]) total protein 6.7 gm/dL 6.4-8.2 Total Protein CHRIS ( [facility]) bilirubin,total 0.4 mg/dL 0.2-1.0 Bilirubin,total ATHE NA ([facility]) albumin/globulin ratio 1.2-2.2 Albumin/globu eun Ratio CHRIS ([facility]) ID Date Data Source [id number] 06/23/2020 08:37:00 AM EDT CH[facility]IS ([facility]) Name Value Range Interpretation Code Description Data Mirella rce(s) Supporting Document(s) white blood count 4.5 10 4.0-10.0 White Blood Count [facility] [facility]) hemoglobin 12.3 g/dL 12.0-15.5 Hemoglobin CHRIS ([facility]) red blood count 4.41 10 4.00-5.40 Red Blood Count ATHE NA ([facility]) hematocrit 38.6 % 36.0-47.0 Hematocrit CHRIS ([facility]) mean corpuscular volume 87.5 fL 80.0-96.0 Mean Corpusc ular Volume CHRIS ([facility]) mean corpuscular HGB conc 31.9 g/dL 32.0-36.5 Below low renetta l Mean Corpuscular HGB Conc CHRIS ([facility]) mean corpuscular hemoglobin 27.9 pg 27.0-33.0 Mean Cor puscular Hemoglobin CHRIS ([facility]) platelet count, automated 215 10 150-450 Platelet C ount, Automated CHRIS ([facility]) neutrophils % 46.6 % 36.0-66.0 Neutrophils % CHRIS ( [facility]) red cell distribution width 13.5 % 11.5-14.5 Red Cell Distribution Width CHRIS ([facility]) eos % 4.9 % 0.0-3.0 Above high normal Eos % CHRIS ([facility]) lymph % 37.9 % 24.0-44.0 Lymph % CHRIS ([facility]) mono % 9.3 % 2.0-8.0 Above high normal [place] % CHRIS ([facility]) neutrophils # 2.1 10 1.5-8.5 Neutrophils # BESSEMER ( [facility]) immature granulocyte % 0.0 % 0-3.0 Immature Gran ulocyte % CHRIS ([facility]) nucleated red blood cell % 0.0 % 0-0 Nucleated Red Blood Cell % CHRIS ([facility]) baso % 1.3 % 0.0-1.0 Above high normal Baso % CHRIS ([facility]) eos # 0.2 10 0.0-0.5 Eos # CHRIS ([facility]) lymph # 1.7 10 1.5-5.0 Lymph # CHRIS ([facility]) mono # 0.4 10 0.0-0.8 [place] # CHRIS ([facility]) baso # 0.1 10 0.0-0.2 Baso # CHRIS ([facility]) ID Date Data Source [id number] 06/23/2020 08:37:00 AM EDT BESSEMER ([facility]) Name Value Range Interpretation Code Description Data Mirella rce(s) Supporting Document(s) appearance, urine clear clear Appearance, Urine CHRIS ([facility]) pH,urine 6.0 units 5.0-9.0 pH,urine CHRIS ([facility]) color, urine yellow yellow Color, Urine CHRIS ([facility]) protein, urine auto negative negative Protein, Urine A uto CHRIS ([facility]) specific gravity urine auto 1.002-1.035 Specifi c [place] Urine Auto BESSEMER ([facility]) glucose, urine (UA) auto negative negative Glucose, Ur ine (UA) Auto BESSEMER ([facility]) urobilinogen, urine auto 0.2 mg/dL 0.0-2.0 Urobilinoge n, Urine Auto CHIRS ([facility]) bilirubin, urine auto negative negative Bilirubin, Uri ne Auto CHRIS ([facility]) ketone, urine auto negative negative Ketone, Urine Aut o CHRIS ([facility]) WBC, urine auto 0 /hpf 0-3 WBC, Urine Auto ATHE NA ([facility]) nitrite, urine auto negative negative Nitrite, Urine A uto CHRIS ([facility]) leukocyte esterase, urine auto negative negative Leukocyte Esterase, Urine Auto CHRIS ([facility]) blood, urine blood 1+ negative Above high normal Blood, Uri ne Blood CHRIS ([facility]) RBC, urine auto 7 /hpf 0-3 Above high normal RBC, Urine Au to CHRIS ([facility]) squamous epithelial cell ur AU 0 /hpf 0-6 Squam ous Epithelial Cell Ur AU CHRIS ([facility]) bacteria, urine auto negative negative Bacteria, Urine Auto CHRIS ([facility]) mucus, urine small negative Mucus, Urine CHRIS (No [facility]) hyaline cast, urine auto 0 /lpf 0-1 Hyaline Jae t, Urine Auto CHRIS ([facility]) Procedure Social History No Information Vital Signs ID Date Data Source UNK Name Value Range Interpretation Code Description Data Source(s) Body height 62 [in_i] 62 [in_i] CHRIS ([facility]) Body weight 164 [lb_av] 164 [lb_av] W1 ([facility]) Body weight 74.39 kg 74.39 kg W1 ([facility]) Body height 62 [in_i] 62 [in_i] W1 ([facility]) Body mass index (BMI) [Ratio] 29.99 kg/m2 29.99 kg/m2 W1 ([facility]) Systolic blood pressure 122 mm[Hg] 122 mm[Hg] e CW1 ([facility]) Diastolic blood pressure 74 mm[Hg] 74 mm[Hg] eCW1 ([facility]) Systolic blood pressure 120 mm[Hg] 120 mm[Hg] Vinny DE LEON ([facility]) Diastolic blood pressure 82 mm[Hg] 82 mm[Hg] [facility] ([facility]) Body height 62 [in_i] 62 [in_i] [facility] ([facility]) 5'2" Body weight 143.00 [lb_av] 143.00 [lb_av] MEDEN T ([facility]) Body mass index (BMI) [Ratio] 26.2 kg/m2 26.2 k g/m2 [facility] ([facility]) [place] body weight 110 [lb_av] 110 [lb_av] MEDEN T ([facility]) Body weight 64.865 kg 64.865 kg [facility] ([facility]) Body surface area Derived from formula 1.66 m2 1.66 m2 [facility] ([facility]) Diastolic blood pressure 67 mm[Hg] 67 mm[Hg] CHRIS ([facility]) Body height 62 [in_i] 62 [in_i] BESSEMER ([facility]) Body mass index (BMI) [Ratio] 25.9 kg/m2 25.9 k g/m2 CHRIS ([facility]) Systolic blood pressure 114 mm[Hg] 114 mm[Hg] A [facility] ([facility]) Body weight 2262 [oz_av] 2262 [oz_av] CHRIS ([facility]) Diastolic blood pressure 67 mm[Hg] 67 mm[Hg] CHRIS ([facility]) Body height 62 [in_i] 62 [in_i] CHRIS ([facility]) Body mass index (BMI) [Ratio] 25.9 kg/m2 25.9 k g/m2 CHRIS ([facility]) Systolic blood pressure 114 mm[Hg] 114 mm[Hg] A [facility] ([facility]) Body weight 2262 [oz_av] 2262 [oz_av] CHRIS ([facility])
[2020-12-24 14:43] LABS: RSV AMPLIFICATION NEGATIVE (NEGATIVE)
--- OUTSIDE RECORDS SUMMARY | 2020-12-24 15:17 | CCD ---
Author Author [facility] Organization [facility] Address Unknown Phone Unavailable Care Team Providers Care Machine Hoop Maker Name Role Phone Alpa Henriquez MD Unavailable [...] Unavailable Alpa Henriquez MD Unavailable Unavailable Alpa Henriqeuz MD Unavailable Unavailable Alpa Henriquez MD Unavailable [...] Henriquez MD Unavailable Unavailable Lorenzo, A Beata BIAS BINDING CUTTER Unavailable Unavailable Lorenzo, A Beata BIAS BINDING CUTTER Unavailable Unavailable Lorenzo, A Beata BIAS BINDING CUTTER Unavailable Unavailable Lorenzo, A Baeta BIAS BINDING CUTTER Unavailable Unavailable Lorenzo, A Beata BIAS BINDING CUTTER Unavailable Unavailable Lorenzo, A Beata BIAS BINDING CUTTER Unavailable Unavailable Lorenzo, A Beata BIAS BINDING CUTTER Unavailable Unavailable [place], A Beata BIAS BINDING CUTTER Unavailable Unavailable [place], A Beata BIAS BINDING CUTTER Unavailable Unavailable [place], A Beata BIAS BINDING CUTTER Unavailable Unavailable [place], A Beata BIAS BINDING CUTTER Unavailable Unavailable [place], A Beata BIAS BINDING CUTTER Unavailable Unavailable [place], A Beata BIAS BINDING CUTTER Unavailable Unavailable [place], A Beata BIAS BINDING CUTTER Unavailable Unavailable [place], A Beata BIAS BINDING CUTTER Unavailable Unavailable [place], A Beata BIAS BINDING CUTTER Unavailable Unavailable [place], A Beata BIAS BINDING CUTTER Unavailable Unavailable [place], A Beata BIAS BINDING CUTTER Unavailable Unavailable [place], A Beata BIAS BINDING CUTTER Unavailable Unavailable [place], A Beata BIAS BINDING CUTTER Unavailable Unavailable [place], A Beata BIAS BINDING CUTTER Unavailable Unavailable [place], A Beata BIAS BINDING CUTTER Unavailable Unavailable [place], A Beata BIAS BINDING CUTTER Unavailable Unavailable [place], A Beata BIAS BINDING CUTTER Unavailable Unavailable [place], A Beata BIAS BINDING CUTTER Unavailable Unavailable [place], A Beata BIAS BINDING CUTTER Unavailable Unavailable [place], A Beata BIAS BINDING CUTTER Unavailable Unavailable [place], A Beata BIAS BINDING CUTTER Unavailable Unavailable [place], A Beata BIAS BINDING CUTTER Unavailable Unavailable [place], A Beata BIAS BINDING CUTTER Unavailable Unavailable [place], A Beata BIAS BINDING CUTTER Unavailable Unavailable Mccall, Clari ACCOUNT RETENTION REPRESENTATIVE Unavailable Unavailable Mccall, Clari ACCOUNT RETENTION REPRESENTATIVE Unavailable Unavailable Mccall, Clari ACCOUNT RETENTION REPRESENTATIVE Unavailable Unavailable Mccall, Clari ACCOUNT RETENTION REPRESENTATIVE Unavailable Unavailable Mccall, Clari ACCOUNT RETENTION REPRESENTATIVE Unavailable Unavailable Mccall, Calri ACCOUNT RETENTION REPRESENTATIVE Unavailable Unavailable Mccall, Clari ACCOUNT RETENTION REPRESENTATIVE Unavailable Unavailable Mccall, Clari ACCOUNT RETENTION REPRESENTATIVE Unavailable Unavailable Mccall, Clari ACCOUNT RETENTION REPRESENTATIVE Unavailable Unavailable Mccall, Clari ACCOUNT RETENTION REPRESENTATIVE Unavailable Unavailable Mccall, Clari ACCOUNT RETENTION REPRESENTATIVE Unavailable Unavailable Mccall, Clari ACCOUNT RETENTION REPRESENTATIVE Unavailable Unavailable Mccall, Clari ACCOUNT RETENTION REPRESENTATIVE Unavailable Unavailable Mccall, Clari ACCOUNT RETENTION REPRESENTATIVE Unavailable Unavailable Mccall, Clari ACCOUNT RETENTION REPRESENTATIVE Unavailable Unavailable Mccall, Clari ACCOUNT RETENTION REPRESENTATIVE Unavailable Unavailable Mccall, Clari ACCOUNT RETENTION REPRESENTATIVE Unavailable Unavailable Mccall, Clari ACCOUNT RETENTION REPRESENTATIVE Unavailable Unavailable Mccall, Clari ACCOUNT RETENTION REPRESENTATIVE Unavailable Unavailable Mccall, Clari ACCOUNT RETENTION REPRESENTATIVE Unavailable Unavailable Mccall, Clari ACCOUNT RETENTION REPRESENTATIVE Unavailable Unavailable Mccall, Clari ACCOUNT RETENTION REPRESENTATIVE Unavailable Unavailable Mccall, Clari ACCOUNT RETENTION REPRESENTATIVE Unavailable Unavailable Mccall, Clari ACCOUNT RETENTION REPRESENTATIVE Unavailable Unavailable Mccall, Clari ACCOUNT RETENTION REPRESENTATIVE Unavailable Unavailable Mccall, Clari ACCOUNT RETENTION REPRESENTATIVE Unavailable Unavailable Mccall, Clari ACCOUNT RETENTION REPRESENTATIVE Unavailable Unavailable Mccall, Clari ACCOUNT RETENTION REPRESENTATIVE Unavailable Unavailable Mccall, Clari ACCOUNT RETENTION REPRESENTATIVE Unavailable Unavailable Mccall, Clari ACCOUNT RETENTION REPRESENTATIVE Unavailable Unavailable Mccall, Clari ACCOUNT RETENTION REPRESENTATIVE Unavailable Unavailable Mccall, Clari ACCOUNT RETENTION REPRESENTATIVE Unavailable Unavailable Mccall, Clari ACCOUNT RETENTION REPRESENTATIVE Unavailable Unavailable Mccall, Clari ACCOUNT RETENTION REPRESENTATIVE Unavailable Unavailable Mccall, Clari ACCOUNT RETENTION REPRESENTATIVE Unavailable Unavailable Mccall, Clari ACCOUNT RETENTION REPRESENTATIVE Unavailable Unavailable Mccall, Clari ACCOUNT RETENTION REPRESENTATIVE Unavailable Unavailable Mccall, Clari ACCOUNT RETENTION REPRESENTATIVE Unavailable Unavailable Mccall, Clari ACCOUNT RETENTION REPRESENTATIVE Unavailable Unavailable Mccall, Clari ACCOUNT RETENTION REPRESENTATIVE Unavailable Unavailable Mccall, Clari ACCOUNT RETENTION REPRESENTATIVE Unavailable Unavailable Mccall, Clari ACCOUNT RETENTION REPRESENTATIVE Unavailable Unavailable Mccall, Clari ACCOUNT RETENTION REPRESENTATIVE Unavailable Unavailable Mccall, Clari ACCOUNT RETENTION REPRESENTATIVE Unavailable Unavailable Mccall, Clari ACCOUNT RETENTION REPRESENTATIVE Unavailable Unavailable Mccall, Clari ACCOUNT RETENTION REPRESENTATIVE Unavailable Unavailable Mccall, Clari ACCOUNT RETENTION REPRESENTATIVE Unavailable Unavailable Mccall, Clari ACCOUNT RETENTION REPRESENTATIVE Unavailable Unavailable Mccall, Clari ACCOUNT RETENTION REPRESENTATIVE Unavailable Unavailable Mccall, Clari ACCOUNT RETENTION REPRESENTATIVE Unavailable Unavailable Mccall, Clari ACCOUNT RETENTION REPRESENTATIVE Unavailable Unavailable Mccall, Clari ACCOUNT RETENTION REPRESENTATIVE Unavailable Unavailable Mccall, Clari ACCOUNT RETENTION REPRESENTATIVE Unavailable Unavailable Mccall, Clari ACCOUNT RETENTION REPRESENTATIVE Unavailable Unavailable Mccall, Clari ACCOUNT RETENTION REPRESENTATIVE Unavailable Unavailable Mccall, Clari ACCOUNT RETENTION REPRESENTATIVE Unavailable Unavailable Mccall, Clari ACCOUNT RETENTION REPRESENTATIVE Unavailable Unavailable Mccall, Clari ACCOUNT RETENTION REPRESENTATIVE Unavailable Unavailable Mccall, Clari ACCOUNT RETENTION REPRESENTATIVE Unavailable Unavailable Mccall, Clari ACCOUNT RETENTION REPRESENTATIVE Unavailable Unavailable Mccall, Clari ACCOUNT RETENTION REPRESENTATIVE Unavailable Unavailable Mccall, Clari ACCOUNT RETENTION REPRESENTATIVE Unavailable Unavailable Mccall, Clari ACCOUNT RETENTION REPRESENTATIVE Unavailable Unavailable Mccall, Clari ACCOUNT RETENTION REPRESENTATIVE Unavailable Unavailable Mccall, Clari ACCOUNT RETENTION REPRESENTATIVE Unavailable Unavailable Mccall, Clari ACCOUNT RETENTION REPRESENTATIVE Unavailable Unavailable Mccall, Clari ACCOUNT RETENTION REPRESENTATIVE Unavailable Unavailable Mccall, Clari ACCOUNT RETENTION REPRESENTATIVE Unavailable Unavailable Mccall, Clari ACCOUNT RETENTION REPRESENTATIVE Unavailable Unavailable Re-disclosure Warning The records that [...] is protected by Article 27-F of the [facility] Public Health law. If you continue you may have access to information: Regarding HIV / AIDS; Provided by facilities licensed or operated by the [facility] Office of Mental Health; or Provided by the [facility] Office for People With Developmental Disabilities. If such information is present, then the following [facility] mandated warning applies: This information has [...] law may result in a fine or correction sentence or both. A general authorization for the release of medical or other information is NOT sufficient authorization for further disc losure. Allergies and Adverse Reactions Type Description Substance Reaction Status Data Source(s ) Propensity to adverse reactions NO KNOWN ALLERGIES NO KNOWN ALLERGIES [facility] Encounters Encounter Providers Location Date Indications Data Source(s ) Jose Henriquez MD: [address] [place] [address], Ph. Attender: Jose Henriquez MD [facility] Medical 06/23/2020 12:00:00 AM EDT CHRIS ([facility]) ( [facility]) [facility] [address] [address] [place] [address] 05/27/2020 12:00:00 AM EDT eCW1 ([facility]) [facility] [address] [place] [address], Ph. Attender: Beata RAPP [facility] Medical 05/06/2020 12:00:00 AM EST CHRIS ([facility]) [facility] [address] [place] [address], Ph. Attender: Beata RAPP [facility] Medical 05/06/2020 12:00:00 AM EST CHRIS ([facility]) Outpatient Attender: Clari Mccall ACCOUNT RETENTION REPRESENTATIVE ADULT PC 12/24/2019 01:03:01 PM EDT [facility] Immunizations Vaccine Date Status Description Data Source(s) New in 2011. IIV4 05/06/2020 01:04:00 PM EST completed 10.5 mL CHRIS ([facility]) New in 2011. IIV4 05/06/2020 01:04:00 PM EST completed .5 mL CHRIS ([facility]) Medications Medication Brand Name Start Date Product Form Dose Route Admi nistrative Instructions Pharmacy Instructions Status Indications Reaction Description Data Source(s) Magnesium Hydroxide 80 MG/ML Oral Suspension Milk Of Magnesi a 05/20/2020 12:00:00 AM EST ORAL active M EDENT ([facility], ) Suprep Bowel Prep Kit Suprep Bowel Prep Kit 05/20/2020 12:00:00 AM EST active MEDENT ([facility], ) Insurance Providers Payer name Policy type / Coverage type Policy ID Covered alliance party ID Covered alliance party's relationship to novoa Policy [place] Plan Information [facility] I [id number] Self [id number] Medicaid P [id number] S [id number] MEDICAID M [id number] Self [id number] [facility] COMMUNITY PLAN [facility] [id number] SP [id number] [facility] COMMUNITY PLAN [facility] [id number] SP [id number] [facility] Comm Plan Medicaid F [id number] SELF [id number] [facility] COMMUNITY PLAN [facility] [id number] SP [id number] [facility] Comm Plan Medicaid F [id number] SELF [id number] MEDICARE [id number] SP [id number] A MEDICARE [id number] SP [id number] Managed Care BCBS S [id number] S [id number] Self Pay O none S none SELF PAY UNAVAILABLE SP UNAVAILA BLE BLUE CROSS MALHOTRA PLAN [id number] SP [id number] MEDICAID [id number] SP [id number] [facility] MEDICAID [id number] MEDICARE [id number] SP [id number] EMEDNY [id number] SP [id number] [place] [id number] SP [id number] COMMUNITY PLAN MCDO [id number] SP [id number] MEDICAID UNAVAILABLE UNAVAILA BLE MEDICARE [id number] SP [id number] [facility] O UNAVAILABLE [id number] C UNAVAILABLE [facility] P [id number] S [id number] MEDICAID P [id number] S [id number] Problems, Conditions, and Diagnoses Code Display Name Description Problem Type Effective Dates Data Source(s) Z85.3 206200021 History of right breast cancer Problem 05/27/2020 12:00:00 AM EDT eCW1 ([facility]) Z90.710 [id number] Hx of hysterectomy Problem 05/27/2020 12:00: 00 AM EDT eCW1 ([facility]) Z85.44 [id number] History of cancer of vulva Problem 12:00:00 AM EDT eCW1 ([facility]) 79906240 Essential hypertension Essential hypertension Problem 05/20/2020 12:00:00 AM CLAU MESSINA ([facility]) [id number] Hypertensive disorder Hypertensive Disorder Problem 12/27/2019 05:31:34 PM EDT CHRIS ([facility]) 69991882 Hyperlipidemia Hyperlipidemia Problem 12/27/2019 05:31: 34 PM EDT CHRIS ([facility]) 11183242 Hypertensive disorder Hypertensive Disorder Problem 12/27/2019 05:31:34 PM EDT CHRIS ([facility]) 00508223 Hyperlipidemia Hyperlipidemia Problem 12/27/2019 05:31: 34 PM EDT CHRIS ([facility]) 482610637 SNOMED CT Concept SNOMED CT Concept Problem 12/26 05:31:33 PM EDT CHRIS ([facility]) 34914936 Depressive disorder Depressive Disorder Problem 1 05:31:33 PM EDT CHRIS ([facility]) 950506530 SNOMED CT Concept SNOMED CT Concept Problem 12/26 05:31:33 PM EDT CHRIS ([facility]) 97996380 Depressive disorder Depressive Disorder Problem 1 05:31:33 PM EDT CHRIS ([facility]) Surgeries/Procedures Procedure Description Date Indications Data Source(s) Colonoscopy W/ Poly 09/12/2020 12:00:00 AM EDT [facility] ([facility]) Results ID Date Data Source [id number] 09/12/2020 02:31:00 PM EDT [facility]) Name Value Range Interpretation Code Description Data Mirella rce(s) Supporting Document(s) Surgical pathology study Laboratory test result [facility] ([facility]) FINAL DIAGNOSIS A - Colon, splenic flexure [...] cm. in aggregate. All in one. -SVY 09/16/2020 - 1337 Signed LAURA KEVIN MD 09/17/2020 1155 ID Date Data Source [id number] 09/07/2020 08:00:00 AM EDT [facility] Name Value Range Interpretation Code Description Data Mirella rce(s) Supporting Document(s) SARS-CoV-2 (COVID-19) RNA [Presence] in Respiratory specimen by AMINATA with probe detection Not Detected [facility] This lab was ordered by [facility] and reported by [employer]. ID Date Data Source [id number] 07/06/2020 09:40:00 AM EDT [facility] Name Value Range Interpretation Code Description Data Mirella rce(s) Supporting Document(s) SARS-CoV-2 (COVID-19) RNA [Presence] in Respiratory specimen by AMINATA with probe detection Not Detected [facility] This lab was ordered by [facility] and reported by [employer]. ID Date Data Source [id number] 06/23/2020 08:37:00 AM EDT [place] ([facility]) Name Value Range Interpretation Code Description Data Mirella rce(s) Supporting Document(s) ID Date Data Source [id number] 06/23/2020 08:37:00 AM EDT CH[facility] ([facility]) Name Value Range Interpretation Code Description Data Mirella rce(s) Supporting Document(s) estimated average glucose 114 mg/dL 60-110 Above high norm al Estimated Average Glucose [place] ([facility]) Hemoglobin A1c/Hemoglobin.total in Blood 5.6 % Hemoglobin a1C [facility]) ID Date Data Source [id number] 06/23/2020 08:37:00 AM EDT [place] ([facility]) Name Value Range Interpretation Code Description Data Mirella rce(s) Supporting Document(s) total 25(oh) vitamin D 16.6 NG/mL 30.0-100.0 Below low normal T otal 25(Oh) Vitamin D [facility]) ID Date Data Source [id number] 06/23/2020 08:37:00 AM EDT [place] ([facility]) Name Value Range Interpretation Code Description Data Mirella rce(s) Supporting Document(s) thyroid stimulating hormone 2.110 uIU/mL 0.358-3.740 Thyroid Stimulating Hormone CH[facility] ([facility]) free T4 0.97 NG/dL 0.76-1.46 Free T4 [facility]) ID Date Data Source [id number] 06/23/2020 08:37:00 AM EDT [facility]) Name Value Range Interpretation Code Description Data Mirella rce(s) Supporting Document(s) HDL cholesterol 62 mg/dL >40 HDL Cholesterol ATHE ([facility]) triglycerides level 79 mg/dL <150 Triglycerides Le dilia CH[facility] ([facility]) cholesterol level 172 mg/dL <200 Cholesterol Level CH[facility] ([facility]) cholesterol risk ratio <5 Cholesterol R isk Ratio [facility] ([facility]) Cholesterol in LDL [Mass/volume] in Serum or Plasma 94 mg/dL <1 00 LDL Cholesterol [facility] ([facility]) non-HDL-C 110 mg/dL Non-hdl-c [facility] ([facility]) ID Date Data Source [id number] 06/23/2020 08:37:00 AM EDT [facility] ([facility]) Name Value Range Interpretation Code Description Data Mirella rce(s) Supporting Document(s) glucose, fasting 105 mg/dL 70-100 Above high normal Glucose, Fas ting [facility] ([facility]) sodium level 144 mEq/L 136-145 Sodium Level CH[facility] (No [facility]) creatinine for GFR 0.66 mg/dL 0.55-1.30 Creatinine for GF R [facility] ([facility]) glomerular filtration rate > 60.0 >45 Glomerula r Filtration Rate [facility] ([facility]) blood urea nitrogen 17 mg/dL 7-18 Blood Urea Nitro gen [facility] ([facility]) potassium serum 4.4 mEq/L 3.5-5.1 Potassium Serum ATHE NA ([facility]) anion gap 4 mEq/L 8-16 Below low normal Anion Gap CH[facility] ( [facility]) carbon dioxide level 30 mEq/L 21-32 Carbon Dioxide Level CHIRS ([facility]) chloride level 110 mEq/L 98-107 Above high normal Chloride Level [facility] ([facility]) ALT/SGPT 20 U/L 12-78 ALT/SGPT [facility] ([facility]) calcium level 8.7 mg/dL 8.8-10.2 Below low normal Calcium Level AT [facility] ([facility]) AST/SGOT 16 U/L 7-37 AST/SGOT [facility] ([facility]) albumin 3.7 gm/dL 3.2-5.2 Albumin [facility] ([facility]) alkaline phosphatase 87 U/L 45-117 Alkaline Phosph atase [facility] ([facility]) total protein 6.7 gm/dL 6.4-8.2 Total Protein CH[facility] ( [facility]) bilirubin,total 0.4 mg/dL 0.2-1.0 Bilirubin,total ATHE NA ([facility]) albumin/globulin ratio 1.2-2.2 Albumin/globu eun Ratio [facility] ([facility]) ID Date Data Source [id number] 06/23/2020 08:37:00 AM EDT CH[facility] ([facility]) Name Value Range Interpretation Code Description Data Mirella rce(s) Supporting Document(s) white blood count 4.5 10 4.0-10.0 White Blood Count CH[facility] ([facility]) hemoglobin 12.3 g/dL 12.0-15.5 Hemoglobin [facility] ([facility]) red blood count 4.41 10 4.00-5.40 Red Blood Count ATHE ([facility]) hematocrit 38.6 % 36.0-47.0 Hematocrit [facility] ([facility]) mean corpuscular volume 87.5 fL 80.0-96.0 Mean Corpusc ular Volume [facility] ([facility]) mean corpuscular HGB conc 31.9 g/dL 32.0-36.5 Below low renetta l Mean Corpuscular HGB Conc [facility] ([facility]) mean corpuscular hemoglobin 27.9 pg 27.0-33.0 Mean Cor puscular Hemoglobin [facility] ([facility]) platelet count, automated 215 10 150-450 Platelet C ount, Automated CH[facility] ([facility]) neutrophils % 46.6 % 36.0-66.0 Neutrophils % [facility] ( [facility]) red cell distribution width 13.5 % 11.5-14.5 Red Cell Distribution Width [facility] ([facility]) eos % 4.9 % 0.0-3.0 Above high normal Eos % [facility] ([facility]) lymph % 37.9 % 24.0-44.0 Lymph % [facility] ([facility]) mono % 9.3 % 2.0-8.0 Above high normal [place] % [facility] ([facility]) neutrophils # 2.1 10 1.5-8.5 Neutrophils # CHRIS ( [facility]) immature granulocyte % 0.0 % 0-3.0 Immature Gran ulocyte % [facility] ([facility]) nucleated red blood cell % 0.0 % 0-0 Nucleated Red Blood Cell % [facility] ([facility]) baso % 1.3 % 0.0-1.0 Above high normal Baso % [facility] ([facility]) eos # 0.2 10 0.0-0.5 Eos # [facility] ([facility]) lymph # 1.7 10 1.5-5.0 Lymph # [facility] ([facility]) mono # 0.4 10 0.0-0.8 [place] # [facility] ([facility]) baso # 0.1 10 0.0-0.2 Baso # [facility] ([facility]) ID Date Data Source [id number] 06/23/2020 08:37:00 AM EDT [place] ([facility]) Name Value Range Interpretation Code Description Data Mirella rce(s) Supporting Document(s) appearance, urine clear clear Appearance, Urine [facility] ([facility]) pH,urine 6.0 units 5.0-9.0 pH,urine [facility] ([facility]) color, urine yellow yellow Color, Urine [facility] (No [facility]) protein, urine auto negative negative Protein, Urine A uto [facility] ([facility]) specific gravity urine auto 1.002-1.035 Specifi c Web[place] Urine Auto CH[facility] ([facility]) glucose, urine (UA) auto negative negative Glucose, Ur ine (UA) Auto [place] ([facility]) urobilinogen, urine auto 0.2 mg/dL 0.0-2.0 Urobilinoge n, Urine Auto [facility] ([facility]) bilirubin, urine auto negative negative Bilirubin, Uri ne Auto [facility] ([facility]) ketone, urine auto negative negative Ketone, Urine Aut o [facility] ([facility]) WBC, urine auto 0 /hpf 0-3 WBC, Urine Auto ATHE NA ([facility]) nitrite, urine auto negative negative Nitrite, Urine A uto [facility] ([facility]) leukocyte esterase, urine auto negative negative Leukocyte Esterase, Urine Auto [facility] ([facility]) blood, urine blood 1+ negative Above high normal Blood, Uri ne Blood [facility] ([facility]) RBC, urine auto 7 /hpf 0-3 Above high normal RBC, Urine Au to [facility] ([facility]) squamous epithelial cell ur AU 0 /hpf 0-6 Squam ous Epithelial Cell Ur AU [facility] ([facility]) bacteria, urine auto negative negative Bacteria, Urine Auto [facility] ([facility]) mucus, urine small negative Mucus, Urine [facility] (No [facility]) hyaline cast, urine auto 0 /lpf 0-1 Hyaline Jae t, Urine Auto [facility] ([facility]) Procedure Social History No Information Vital Signs ID Date Data Source UNK Name Value Range Interpretation Code Description Data Source(s) Body height 62 [in_i] 62 [in_i] [facility] ([facility]) Body weight 164 [lb_av] 164 [lb_av] W1 ([facility]) Body weight 74.39 kg 74.39 kg W1 ([facility]) Body height 62 [in_i] 62 [in_i] W1 ([facility]) Body mass index (BMI) [Ratio] 29.99 kg/m2 29.99 kg/m2 W1 ([facility]) Systolic blood pressure 122 mm[Hg] 122 mm[Hg] e CW1 ([facility]) Diastolic blood pressure 74 mm[Hg] 74 mm[Hg] eCW1 ([facility]) Systolic blood pressure 120 mm[Hg] 120 mm[Hg] Vinny DE LEON ([facility]) Diastolic blood pressure 82 mm[Hg] 82 mm[Hg] [facility]) Body height 62 [in_i] 62 [in_i] [facility] ([facility]) 5'2" Body weight 143.00 [lb_av] 143.00 [lb_av] [facility] ([facility]) Body mass index (BMI) [Ratio] 26.2 kg/m2 26.2 k g/m2 [facility] ([facility]) [place] body weight 110 [lb_av] 110 [lb_av] [facility] Body weight 64.865 kg 64.865 kg [facility] ([facility]) Body surface area Derived from formula 1.66 m2 1.66 m2 [facility] ([facility]) Diastolic blood pressure 67 mm[Hg] 67 mm[Hg] [facility] ([facility]) Body height 62 [in_i] 62 [in_i] [place] ([facility]) Body mass index (BMI) [Ratio] 25.9 kg/m2 25.9 k g/m2 [facility] [facility] Systolic blood pressure 114 mm[Hg] 114 mm[Hg] [facility] ([facility]) Body weight 2262 [oz_av] 2262 [oz_av] [place] ([facility]) Diastolic blood pressure 67 mm[Hg] 67 mm[Hg] [facility] ([facility]) Body height 62 [in_i] 62 [in_i] [facility] ([facility]) Body mass index (BMI) [Ratio] 25.9 kg/m2 25.9 k g/m2 [facility] ([facility]) Systolic blood pressure 114 mm[Hg] 114 mm[Hg] [facility] ([facility]) Body weight 2262 [oz_av] 2262 [oz_av] [facility] ([facility])
[2020-12-24] MEDS ORDERED: ALBUTEROL 90 MCG/ACT 8GM HFA INHALER INH ONE (15:45)
--- NOTE | 2020-12-24 16:02 | REP ---
INDICATION: dizziness. COMPARISON: None. TECHNIQUE: .5 mm contiguous transaxial sections were obtained from the skull base to the cerebral convexities without the administration of intravenous contrast. FINDINGS: The ventricles and sulci are consistent with the patient's age. There are no extra-axial fluid collections. There is no mass effect. The deep cerebral white matter is consistent with the patient's age. The orbital and petrous structures, cerebellopontine angles, and posterior fossa are unremarkable. The sella turcica, cavernous, and paracavernous structures are essentially unremarkable. There are soft tissue densities seen throughout the ethmoid bulla and within the imaged portion of the right maxillary sinus. IMPRESSION: There is no evidence of acute intracranial pathology. There are paranasal sinus soft tissue densities as described above. Mucosal thickening or possibly sinonasal polyposis. <Electronically signed by Butch Maxwell > 12/24/20 [id number]
[2020-12-24 16:31] LABS: BASO # 0.1 10^3/uL (0.0-0.2); EOS # 0.2 10^3/uL (0.0-0.5); EOS % 3.5 % (0.0-3.0); HEMATOCRIT 40.1 % (36.0-47.0); HEMOGLOBIN 12.9 g/dl (12.0-15.5); LYMPH # 1.9 10^3/uL (1.5-5.0); LYMPH % 31.2 % (24.0-44.0); MEAN CORPUSCULAR HEMOGLOBIN 27.9 pg (27.0-33.0); MEAN CORPUSCULAR HGB CONC 32.2 g/dl (32.0-36.5); MEAN CORPUSCULAR VOLUME 86.8 fl (80.0-96.0); MONO # 0.5 10^3/uL (0.0-0.8); MONO % 7.4 % (2.0-8.0); NEUTROPHILS # 3.4 10^3/uL (1.5-8.5); NEUTROPHILS % 56.7 % (36.0-66.0); PLATELET COUNT, AUTOMATED 210 10^3/uL (150-450); RED BLOOD COUNT 4.62 10^6/uL (4.00-5.40); WHITE BLOOD COUNT 6.1 10^3/uL (4.0-10.0)
[2020-12-24 16:55] VITALS: O2SAT 85
[2020-12-24 16:56] LABS: ALBUMIN 3.4 GM/DL (3.2-5.2); ALT/SGPT 20 U/L (12-78); BILIRUBIN,DIRECT 0.2 MG/DL (0.0-0.2); BILIRUBIN,TOTAL 0.5 MG/DL (0.2-1.0); BLOOD UREA NITROGEN 11 MG/DL (7-18); CALCIUM LEVEL 8.9 MG/DL (8.8-10.2); CARBON DIOXIDE LEVEL 26 MEQ/L (21-32); CHLORIDE LEVEL 110 MEQ/L (98-107); CK-MB VALUE MASS < 1.0 NG/ML (<3.6); CPK CREATINE PHOSPHOKINASE 64 U/L (26-192); CREATININE FOR GFR 0.73 MG/DL (0.55-1.30); GLOMERULAR FILTRATION RATE > 60.0 (>45); GLUCOSE, FASTING 77 MG/DL (70-100); LDH LACTATE DEHYDROGENASE 147 U/L (84-246); MB/CK RELATIVE INDEX 1.56 (< OR =4); POTASSIUM SERUM 4.1 MEQ/L (3.5-5.1); SODIUM LEVEL 143 MEQ/L (136-145); TOTAL PROTEIN 6.7 GM/DL (6.4-8.2); TROPONIN I < 0.02 NG/ML (< 0.10)
[2020-12-24] MEDS ORDERED: ISOVUE-370 76% 100ML VIAL As Ordered ONE (17:28)
[2020-12-24 17:58] LABS: APPEARANCE, URINE CLEAR (CLEAR); BACTERIA, URINE AUTO NEGATIVE (NEGATIVE); BILIRUBIN, URINE AUTO NEGATIVE (NEGATIVE); BLOOD, URINE BLOOD 1+ (NEGATIVE); COLOR, URINE YELLOW (YELLOW); GLUCOSE, URINE (UA) AUTO NEGATIVE (NEGATIVE); KETONE, URINE AUTO NEGATIVE (NEGATIVE); LEUKOCYTE ESTERASE, URINE AUTO NEGATIVE (NEGATIVE); MUCUS, URINE SMALL (NEGATIVE); NITRITE, URINE AUTO NEGATIVE (NEGATIVE); PROTEIN, URINE AUTO NEGATIVE (NEGATIVE); RBC, URINE AUTO 0 /HPF (0-3); SPECIFIC GRAVITY URINE AUTO 1.014 (1.002-1.035); SQUAMOUS EPITHELIAL CELL UR AU 0 /HPF (0-6); UROBILINOGEN, URINE AUTO 0.2 mg/dL (0.0-2.0); WBC, URINE AUTO 0 /HPF (0-3)
--- NOTE | 2020-12-24 19:04 | REPVR ---
PROCEDURE INFORMATION: Exam: CTA Chest With Contrast Exam date and time: 12/24/2020 5:57 PM Age: 70 years old Clinical indication: Cough and shortness of breath; Additional info: R/O pe, cp, SOB, elevated dimer TECHNIQUE: Imaging protocol: Computed tomographic angiography of the chest with contrast. 3D rendering (Not supervised by radiologist): MIP and/or 3D reconstructed images were created by the technologist. Radiation optimization: All CT scans at this facility use at least one of these dose optimization techniques: automated exposure control; mA and/or kV adjustment per patient size (includes targeted exams where dose is matched to clinical indication); or iterative reconstruction. Contrast material: ISOVUE 370; Contrast volume: 75 ml; Contrast route: INTRAVENOUS (IV); COMPARISON: LOW DOSE LUNG SCREENING CT 03/04/2020 12:59 PM FINDINGS: Pulmonary arteries: No focal pulmonary artery filling defect to suggest acute pulmonary embolus. Pulmonary vascular/interstitial pattern does not suggest active pulmonary edema. Aorta: No thoracic aortic aneurysm or dissection. Lungs: No suspicious lung mass or air space process. No central endobronchial lesion. Pleural spaces: No pleural effusion or pneumothorax. Heart: No overt cardiac enlargement or abnormal volume of pericardial fluid. Lymph nodes: No enlarged mediastinal lymph nodes. Intraperitoneal space: Limited visualization of upper abdomen shows no concerning finding. Bones/joints: Bony structures show no acute fracture or destructive process. Left shoulder arthroplasty and right shoulder degenerative changes are present Soft tissues: No asymmetric abnormality of the extrathoracic soft tissues. IMPRESSION: 1. No evidence of acute pulmonary embolus. 2. No other acute or concerning focal intrathoracic abnormality. Electronically signed by: Syed Khalil On 12/24/2020 19:03:42 PM
[2020-12-24] MEDS ORDERED: COMBIVENT RESPIMAT 100-20MCG INHALER 4GM INH STA (19:15)
[2020-12-24] MEDS ORDERED: methylPREDNISolone 125MG 2ML VIAL IV ONE (19:15)
[2020-12-24] MEDS ORDERED: ANAS1TAB2 PO (19:39)
[2020-12-24] MEDS ORDERED: FLUTISP NARES (19:40)
[2020-12-24] MEDS ORDERED: HOME MED LIST COMPLETE! XX SCH (19:40)
[2020-12-24] MEDS ORDERED: NICOTINE 7 MG/24 HR TRANSDERMAL TD PRN (20:00)
[2020-12-24] MEDS ORDERED: MOM 30ML SUSPENSION UDC PO PRN (20:00)
[2020-12-24] MEDS ORDERED: MAALOX 30 ML SUSP *UDC PO PRN (20:00)
[2020-12-24] MEDS ORDERED: ACETAMINOPHEN TAB 650MG DOSE (2X325MG) PO PRN (20:00)
[2020-12-24] MEDS ORDERED: COMBIVENT RESPIMAT 100-20MCG INHALER 4GM INH PRN (20:00)
[2020-12-24] MEDS ORDERED: guaiFENesin 200 MG TAB PO PRN (20:00)
[2020-12-24] MEDS: IPRATROPIUM 0.5MG/ALBUTEROL 2.5MG INH SOL UD 3ML (DUONEB) NEB SCH (20:00)
--- OUTSIDE RECORDS SUMMARY | 2020-12-24 20:17 | CCD ---
Author Author [facility] Organization [facility] Address Unknown Phone Unavailable Care Team Providers Care Dish Technician Name Role Phone Alpa Henriquez MD Unavailable [...] Henriquez MD Unavailable Unavailable Lorenzo, A Beata DEPUTY BAILIFF Unavailable Unavailable Lorenzo, A Beata DEPUTY BAILIFF Unavailable Unavailable Lorenzo, A Beata DEPUTY BAILIFF Unavailable Unavailable Lorenzo, A Beata DEPUTY BAILIFF Unavailable Unavailable Lorenzo, A Beata DEPUTY BAILIFF Unavailable Unavailable Lorenzo, A Beata DEPUTY BAILIFF Unavailable Unavailable Lorenzo, A Beata DEPUTY BAILIFF Unavailable Unavailable [place], A Beata DEPUTY BAILIFF Unavailable Unavailable [place], A Beata DEPUTY BAILIFF Unavailable Unavailable [place], A Beata DEPUTY BAILIFF Unavailable Unavailable [place], A Beata DEPUTY BAILIFF Unavailable Unavailable [place], A Beata DEPUTY BAILIFF Unavailable Unavailable [place], A Beata DEPUTY BAILIFF Unavailable Unavailable [place], A Beata DEPUTY BAILIFF Unavailable Unavailable [place], A Beata DEPUTY BAILIFF Unavailable Unavailable [place], A Beata DEPUTY BAILIFF Unavailable Unavailable [place], A Beata DEPUTY BAILIFF Unavailable Unavailable [place], A Beata DEPUTY BAILIFF Unavailable Unavailable [place], A Beata DEPUTY BAILIFF Unavailable Unavailable [place], A Beata DEPUTY BAILIFF Unavailable Unavailable [place], A Beata DEPUTY BAILIFF Unavailable Unavailable [place], A Beata DEPUTY BAILIFF Unavailable Unavailable [place], A Beata DEPUTY BAILIFF Unavailable Unavailable [place], A Beata DEPUTY BAILIFF Unavailable Unavailable [place], A Beata DEPUTY BAILIFF Unavailable Unavailable [place], A Beata DEPUTY BAILIFF Unavailable Unavailable [place], A Beata DEPUTY BAILIFF Unavailable Unavailable [place], A Beata DEPUTY BAILIFF Unavailable Unavailable [place], A Beata DEPUTY BAILIFF Unavailable Unavailable [place], A Beata DEPUTY BAILIFF Unavailable Unavailable [place], A Beata DEPUTY BAILIFF Unavailable Unavailable Mccall, Clari TEST ENGINEER Unavailable Unavailable Mccall, Clari TEST ENGINEER Unavailable Unavailable Mccall, Clari TEST ENGINEER Unavailable Unavailable Mcacll, Clari TEST ENGINEER Unavailable Unavailable Mccall, Clari TEST ENGINEER Unavailable Unavailable Mccall, Clari TEST ENGINEER Unavailable Unavailable Mccall, Clari TEST ENGINEER Unavailable Unavailable Mccall, Clari TEST ENGINEER Unavailable Unavailable Mccall, Clari TEST ENGINEER Unavailable Unavailable Mccall, Clari TEST ENGINEER Unavailable Unavailable Mccall, Clari TEST ENGINEER Unavailable Unavailable Mccall, Clari TEST ENGINEER Unavailable Unavailable Mccall, Clari TEST ENGINEER Unavailable Unavailable Mccall, Clari TEST ENGINEER Unavailable Unavailable Mccall, Clari TEST ENGINEER Unavailable Unavailable Mccall, Clari TEST ENGINEER Unavailable Unavailable Mccall, Clari TEST ENGINEER Unavailable Unavailable Mccall, Clari TEST ENGINEER Unavailable Unavailable Mccall, Clari TEST ENGINEER Unavailable Unavailable Mccall, Clari TEST ENGINEER Unavailable Unavailable Mccall, Clari TEST ENGINEER Unavailable Unavailable Mccall, Clari TEST ENGINEER Unavailable Unavailable Mccall, Clari TEST ENGINEER Unavailable Unavailable Mccall, Clari TEST ENGINEER Unavailable Unavailable Mccall, Clari TEST ENGINEER Unavailable Unavailable Mccall, Clari TEST ENGINEER Unavailable Unavailable Mccall, Clari TEST ENGINEER Unavailable Unavailable Mccall, Clari TEST ENGINEER Unavailable Unavailable Mccall, Clari TEST ENGINEER Unavailable Unavailable Mccall, Clari TEST ENGINEER Unavailable Unavailable Mccall, Clari TEST ENGINEER Unavailable Unavailable Mccall, Clari TEST ENGINEER Unavailable Unavailable Mccall, Clari TEST ENGINEER Unavailable Unavailable Mccall, Clari TEST ENGINEER Unavailable Unavailable Mccall, Clari TEST ENGINEER Unavailable Unavailable Mccall, Clari TEST ENGINEER Unavailable Unavailable Mccall, Clari TEST ENGINEER Unavailable Unavailable Mccall, Clari TEST ENGINEER Unavailable Unavailable Mccall, Clari TEST ENGINEER Unavailable Unavailable Mccall, Clari TEST ENGINEER Unavailable Unavailable Mccall, Clari TEST ENGINEER Unavailable Unavailable Mccall, Clari TEST ENGINEER Unavailable Unavailable Mccall, Clari TEST ENGINEER Unavailable Unavailable Mccall, Clari TEST ENGINEER Unavailable Unavailable Mccall, Clari TEST ENGINEER Unavailable Unavailable Mccall, Clari TEST ENGINEER Unavailable Unavailable Mccall, Clari TEST ENGINEER Unavailable Unavailable Mccall, Clari TEST ENGINEER Unavailable Unavailable Mccall, Clari TEST ENGINEER Unavailable Unavailable Mccall, Clari TEST ENGINEER Unavailable Unavailable Mccall, Clari TEST ENGINEER Unavailable Unavailable Mccall, Clari TEST ENGINEER Unavailable Unavailable Mccall, Clari TEST ENGINEER Unavailable Unavailable Mccall, Lcari TEST ENGINEER Unavailable Unavailable Mccall, Clari TEST ENGINEER Unavailable Unavailable Mccall, Clari TEST ENGINEER Unavailable Unavailable Mccall, Clari TEST ENGINEER Unavailable Unavailable Mccall, Clari TEST ENGINEER Unavailable Unavailable Mccall, Clari TEST ENGINEER Unavailable Unavailable Mccall, Clari TEST ENGINEER Unavailable Unavailable Mccall, Clari TEST ENGINEER Unavailable Unavailable Mccall, Clari TEST ENGINEER Unavailable Unavailable Mccall, Clari TEST ENGINEER Unavailable Unavailable Mccall, Clari TEST ENGINEER Unavailable Unavailable Mccall, Clari TEST ENGINEER Unavailable Unavailable Mccall, Clari TEST ENGINEER Unavailable Unavailable Mccall, Clari TEST ENGINEER Unavailable Unavailable Mccall, Clari TEST ENGINEER Unavailable Unavailable Mccall, Clari TEST ENGINEER Unavailable Unavailable Re-disclosure Warning The records that [...] is protected by Article 27-F of the [facility] Public Health law. If you continue you may have access to information: Regarding HIV / AIDS; Provided by facilities licensed or operated by the [facility] Office of Mental Health; or Provided by the [facility] Office for People With Developmental Disabilities. If such information is present, then the following [facility] mandated warning applies: This information has [...] law may result in a fine or assisted sentence or both. A general authorization for the release of medical or other information is NOT sufficient authorization for further disc losure. Allergies and Adverse Reactions Type Description Substance Reaction Status Data Source(s ) Propensity to adverse reactions NO KNOWN ALLERGIES NO KNOWN ALLERGIES [facility] Encounters Encounter Providers Location Date Indications Data Source(s ) Jose Henriquez MD: [address] [place] [address], Ph. Attender: Jose Henriquez MD [facility] Medical 06/23/2020 12:00:00 AM EDT CHRIS ([facility]) ( NPG[facility]) [facility] [address] [place] [address] 05/27/2020 12:00:00 AM EDT eCW1 ([facility]) [facility] [address] [place] [address], Ph. Attender: Beata RAPP [facility] Medical 05/06/2020 12:00:00 AM EST CH[facility] ([facility]) [facility] [address] [place] [address], Ph. Attender: Beata RAPP [facility] Medical 05/06/2020 12:00:00 AM EST CHRIS ([facility]) Outpatient Attender: Clari Mccall [facility] 12/24/2019 01:03:01 PM EDT [facility] Immunizations Vaccine Date Status Description Data Source(s) New in 2011. IIV4 05/06/2020 01:04:00 PM EST completed .5 mL [facility] ([facility]) New in 2011. IIV4 05/06/2020 01:04:00 PM EST completed .5 mL [facility] ([facility]) Medications Medication Brand Name Start Date Product Form Dose Route Admi nistrative Instructions Pharmacy Instructions Status Indications Reaction Description Data Source(s) Magnesium Hydroxide 80 MG/ML Oral Suspension Milk Of Magnesi a 05/20/2020 12:00:00 AM EST ORAL active M EDENT ([facility], ) Suprep Bowel Prep Kit Suprep Bowel Prep Kit 05/20/2020 12:00:00 AM EST active MEDENT ([facility], ) Insurance Providers Payer name Policy type / Coverage type Policy ID Covered republican ID Covered republican's relationship to novoa Policy Novoa Plan Information [facility] I [id number] Self [id number] MEDICAID [id number] Self [id number] Medicaid P [id number] S [id number] [facility] [employer] [id number] SP [id number] [facility] Comm Plan Medicaid F [id number] SELF [id number] [facility] [id number] SP [id number] [facility] COMMUNITY [facility] [id number] SP [id number] [facility] Comm Plan Medicaid F [id number] SELF [id number] MEDICARE [id number] SP [id number] R91 MEDICARE [id number] SP [id number] A UNHC COMMUNITY PLAN MCDO [id number] SP [id number] MEDICAID UNAVAILABLE UNAVAILA BLE MEDICARE [id number] SP [id number] A EMEDNY [id number] SP [id number] EMEDNY [id number] SP [id number] MEDICARE [id number] SP [id number] [id number] [place] [id number] O UNAVAILABLE [id number] C UNAVAILABLE [facility](MCA[facility]) P [id number] S [id number] MEDICAID P [id number] S [id number] Managed Care BCBS S [id number] S [id number] Self Pay O none S none SELF PAY UNAVAILABLE SP UNAVAILA BLE BLUE CROSS [place] PLAN [id number] SP [id number] MEDICAID [id number] SP [id number] Problems, Conditions, and Diagnoses Code Display Name Description Problem Type Effective Dates Data Source(s) Z85.3 [id number] History of right breast cancer Problem 05/27/2020 12:00:00 AM EDT eCW1 ([facility]) Z90.710 [id number] Hx of hysterectomy Problem 05/27/2020 12:00: 00 AM EDT eCW1 ([facility]) Z85.44 [id number] History of cancer of vulva Problem 12:00:00 AM EDT eCW1 ([facility]) [id number] Essential hypertension Essential hypertension Problem 05/20/2020 12:00:00 AM CLAU MESSINA ([facility]) [id number] Hypertensive disorder Hypertensive Disorder Problem 12/27/2019 05:31:34 PM EDT CHR[facility] ([facility]) [id number] Hyperlipidemia Hyperlipidemia Problem 12/27/2019 05:31: 34 PM EDT CHRIS ([facility]) 11730975 Hypertensive disorder Hypertensive Disorder Problem 12/27/2019 05:31:34 PM EDT CHR[facility] ([facility]) 61445999 Hyperlipidemia Hyperlipidemia Problem 12/27/2019 05:31: 34 PM EDT [facility] ([facility]) [id number] SNOMED CT Concept SNOMED CT Concept Problem 12/26 05:31:33 PM EDT CH[facility] ([facility]) 14256596 Depressive disorder Depressive Disorder Problem 1 05:31:33 PM EDT [facility] ([facility]) [id number] SNOMED CT Concept SNOMED CT Concept Problem 12/26 05:31:33 PM EDT CH[facility] ([facility]) 50770513 Depressive disorder Depressive Disorder Problem 1 05:31:33 PM EDT CHR[facility] ([facility]) Surgeries/Procedures Procedure Description Date Indications Data Source(s) Colonoscopy W/ Poly 09/12/2020 12:00:00 AM EDT [facility] ([facility], ) Results ID Date Data Source [id number] 09/12/2020 02:31:00 PM EDT [facility] Name Value Range Interpretation Code Description Data Mirella rce(s) Supporting Document(s) Surgical pathology study Laboratory test result [facility] ([facility]) FINAL DIAGNOSIS A - Colon, splenic [...] MD 09/17/2020 1155 ID Date Data Source [id number] 09/07/2020 08:00:00 AM EDT [facility] Name Value Range Interpretation Code Description Data Mirella rce(s) Supporting Document(s) SARS-CoV-2 (COVID-19) RNA [Presence] in Respiratory specimen by AMINATA with probe detection Not Detected [facility] This lab was ordered by [facility] and reported by [employer]. ID Date Data Source [id number] 07/06/2020 09:40:00 AM EDT [facility] Name Value Range Interpretation Code Description Data Mirella rce(s) Supporting Document(s) SARS-CoV-2 (COVID-19) RNA [Presence] in Respiratory specimen by AMINATA with probe detection Not Detected [facility] This lab was ordered by [facility] and reported by [employer]. ID Date Data Source [id number] 06/23/2020 08:37:00 AM EDT [place] ([facility]) Name Value Range Interpretation Code Description Data Mirella rce(s) Supporting Document(s) ID Date Data Source [id number] 06/23/2020 08:37:00 AM EDT [facility] ([facility]) Name Value Range Interpretation Code Description Data Mirella rce(s) Supporting Document(s) estimated average glucose 114 mg/dL 60-110 Above high norm al Estimated Average Glucose [facility] ([facility]) Hemoglobin A1c/Hemoglobin.total in Blood 5.6 % Hemoglobin a1C [facility] ([facility]) ID Date Data Source [id number] 06/23/2020 08:37:00 AM EDT [place] ([facility]) Name Value Range Interpretation Code Description Data Mirella rce(s) Supporting Document(s) total 25(oh) vitamin D 16.6 NG/mL 30.0-100.0 Below low normal T otal 25(Oh) Vitamin D [facility]) ID Date Data Source [id number] 06/23/2020 08:37:00 AM EDT [place] ([facility]) Name Value Range Interpretation Code Description Data Mirella rce(s) Supporting Document(s) thyroid stimulating hormone 2.110 uIU/mL 0.358-3.740 Thyroid Stimulating Hormone [facility] ([facility]) free T4 0.97 NG/dL 0.76-1.46 Free T4 [facility]) ID Date Data Source [id number] 06/23/2020 08:37:00 AM EDT [facility]) Name Value Range Interpretation Code Description Data Mirella rce(s) Supporting Document(s) HDL cholesterol 62 mg/dL >40 HDL Cholesterol ATHE ([facility]) triglycerides level 79 mg/dL <150 Triglycerides Le dilia [facility] ([facility]) cholesterol level 172 mg/dL <200 Cholesterol Level [facility] ([facility]) cholesterol risk ratio <5 Cholesterol R isk Ratio [facility] ([facility]) Cholesterol in LDL [Mass/volume] in Serum or Plasma 94 mg/dL <1 00 LDL Cholesterol [facility] ([facility]) non-HDL-C 110 mg/dL Non-hdl-c [facility] ([facility]) ID Date Data Source [id number] 06/23/2020 08:37:00 AM EDT [facility] ([facility]) Name Value Range Interpretation Code Description Data Mirella rce(s) Supporting Document(s) glucose, fasting 105 mg/dL 70-100 Above high normal Glucose, Fas ting [facility] ([facility]) sodium level 144 mEq/L 136-145 Sodium Level [facility] ([facility]) creatinine for GFR 0.66 mg/dL 0.55-1.30 Creatinine for GF R [facility] ([facility]) glomerular filtration rate > 60.0 >45 Glomerula r Filtration Rate [facility] ([facility]) blood urea nitrogen 17 mg/dL 7-18 Blood Urea Nitro gen [facility] ([facility]) potassium serum 4.4 mEq/L 3.5-5.1 Potassium Serum ATHE NA ([facility]) anion gap 4 mEq/L 8-16 Below low normal Anion Gap [facility] ( [facility]) carbon dioxide level 30 mEq/L 21-32 Carbon Dioxide Level [facility] ([facility]) chloride level 110 mEq/L 98-107 Above high normal Chloride Level [facility] ([facility]) ALT/SGPT 20 U/L 12-78 ALT/SGPT [facility] ([facility]) calcium level 8.7 mg/dL 8.8-10.2 Below low normal Calcium Level AT [facility]) AST/SGOT 16 U/L 7-37 AST/SGOT [facility] ([facility]) albumin 3.7 gm/dL 3.2-5.2 Albumin [facility] ([facility]) alkaline phosphatase 87 U/L 45-117 Alkaline Phosph atase [facility] ([facility]) total protein 6.7 gm/dL 6.4-8.2 Total Protein [facility] ( [facility]) bilirubin,total 0.4 mg/dL 0.2-1.0 Bilirubin,total ATHE NA ([facility]) albumin/globulin ratio 1.2-2.2 Albumin/globu eun Ratio [facility] ([facility]) ID Date Data Source [id number] 06/23/2020 08:37:00 AM EDT [facility] ([facility]) Name Value Range Interpretation Code Description Data Mirella rce(s) Supporting Document(s) white blood count 4.5 10 4.0-10.0 White Blood Count [facility] ([facility]) hemoglobin 12.3 g/dL 12.0-15.5 Hemoglobin [facility] ([facility]) red blood count 4.41 10 4.00-5.40 Red Blood Count ATHE ([facility]) hematocrit 38.6 % 36.0-47.0 Hematocrit [facility] ([facility]) mean corpuscular volume 87.5 fL 80.0-96.0 Mean Corpusc ular Volume [facility] ([facility]) mean corpuscular HGB conc 31.9 g/dL 32.0-36.5 Below low renetta l Mean Corpuscular HGB Conc [facility] ([facility]) mean corpuscular hemoglobin 27.9 pg 27.0-33.0 Mean Cor puscular Hemoglobin [facility] ([facility]) platelet count, automated 215 10 150-450 Platelet C ount, Automated [facility] ([facility]) neutrophils % 46.6 % 36.0-66.0 Neutrophils % [facility] ( [facility]) red cell distribution width 13.5 % 11.5-14.5 Red Cell Distribution Width [facility] ([facility]) eos % 4.9 % 0.0-3.0 Above high normal Eos % [facility] ([facility]) lymph % 37.9 % 24.0-44.0 Lymph % [facility] ([facility]) mono % 9.3 % 2.0-8.0 Above high normal Armstrong % [facility] ([facility]) neutrophils # 2.1 10 1.5-8.5 Neutrophils # [facility] ( [facility]) immature granulocyte % 0.0 % 0-3.0 Immature Gran ulocyte % [facility] ([facility]) nucleated red blood cell % 0.0 % 0-0 Nucleated Red Blood Cell % [facility] ([facility]) baso % 1.3 % 0.0-1.0 Above high normal Baso % [facility] ([facility]) eos # 0.2 10 0.0-0.5 Eos # [facility] ([facility]) lymph # 1.7 10 1.5-5.0 Lymph # [facility] ([facility]) mono # 0.4 10 0.0-0.8 [place] # [facility] ([facility]) baso # 0.1 10 0.0-0.2 Baso # [facility] ([facility]) ID Date Data Source [id number] 06/23/2020 08:37:00 AM EDT [place] ([facility]) Name Value Range Interpretation Code Description Data Mirella rce(s) Supporting Document(s) appearance, urine clear clear Appearance, Urine [facility] ([facility]) pH,urine 6.0 units 5.0-9.0 pH,urine [facility] ([facility]) color, urine yellow yellow Color, Urine [facility] ([facility]) protein, urine auto negative negative Protein, Urine A uto [facility] ([facility]) specific gravity urine auto 1.002-1.035 Specifi c [place] Urine Auto [facility] ([facility]) glucose, urine (UA) auto negative negative Glucose, Ur ine (UA) Auto [facility] ([facility]) urobilinogen, urine auto 0.2 mg/dL 0.0-2.0 Urobilinoge n, Urine Auto [facility] ([facility]) bilirubin, urine auto negative negative Bilirubin, Uri ne Auto [facility] ([facility]) ketone, urine auto negative negative Ketone, Urine Aut o [facility] ([facility]) WBC, urine auto 0 /hpf 0-3 WBC, Urine Auto ATHE NA ([facility]) nitrite, urine auto negative negative Nitrite, Urine A uto [facility] ([facility]) leukocyte esterase, urine auto negative negative Leukocyte Esterase, Urine Auto [facility] ([facility]) blood, urine blood 1+ negative Above high normal Blood, Uri ne Blood [facility] ([facility]) RBC, urine auto 7 /hpf 0-3 Above high normal RBC, Urine Au to [facility] ([facility]) squamous epithelial cell ur AU 0 /hpf 0-6 Squam ous Epithelial Cell Ur AU [facility] ([facility]) bacteria, urine auto negative negative Bacteria, Urine Auto [facility] ([facility]) mucus, urine small negative Mucus, Urine [facility] ([facility]) hyaline cast, urine auto 0 /lpf 0-1 Hyaline Jae t, Urine Auto [facility] ([facility]) Procedure Social History No Information Vital Signs ID Date Data Source UNK Name Value Range Interpretation Code Description Data Source(s) Body height 62 [in_i] 62 [in_i] [facility] ([facility]) Body weight 164 [lb_av] 164 [lb_av] W1 ([facility]) Body weight 74.39 kg 74.39 kg W1 ([facility]) Body height 62 [in_i] 62 [in_i] W1 ([facility]) Body mass index (BMI) [Ratio] 29.99 kg/m2 29.99 kg/m2 W1 ([facility]) Systolic blood pressure 122 mm[Hg] 122 mm[Hg] e CW1 ([facility]) Diastolic blood pressure 74 mm[Hg] 74 mm[Hg] eCW1 ([facility]) Systolic blood pressure 120 mm[Hg] 120 mm[Hg] Vinny DE LEON ([facility], ) Diastolic blood pressure 82 mm[Hg] 82 mm[Hg] [facility] Body height 62 [in_i] 62 [in_i] [facility] ([facility]) 5'2" Body weight 143.00 [lb_av] 143.00 [lb_av] MEDEN T ([facility]) Body mass index (BMI) [Ratio] 26.2 kg/m2 26.2 k g/m2 [facility]) [place] body weight 110 [lb_av] 110 [lb_av] MEDEN T ([facility]) Body weight 64.865 kg 64.865 kg [facility] ([facility]) Body surface area Derived from formula 1.66 m2 1.66 m2 [facility] ([facility]) Diastolic blood pressure 67 mm[Hg] 67 mm[Hg] [facility] ([facility]) Body height 62 [in_i] 62 [in_i] [place] ([facility]) Body mass index (BMI) [Ratio] 25.9 kg/m2 25.9 k g/m2 [facility] ([facility]) Systolic blood pressure 114 mm[Hg] 114 mm[Hg] [facility] ([facility]) Body weight 2262 [oz_av] 2262 [oz_av] [place] ([facility]) Diastolic blood pressure 67 mm[Hg] 67 mm[Hg] [facility] ([facility]) Body height 62 [in_i] 62 [in_i] [facility] ([facility]) Body mass index (BMI) [Ratio] 25.9 kg/m2 25.9 k g/m2 [facility] ([facility]) Systolic blood pressure 114 mm[Hg] 114 mm[Hg] [facility] ([facility]) Body weight 2262 [oz_av] 2262 [oz_av] [facility] ([facility])
--- NOTE | 2020-12-24 20:26 | HPEPDOC ---
[facility] Medical History & Physical Date of Admission Dec 24, 2020 Date of Service: Dec 24, 2020 Attending Physician: LEI ELIZABETH MD History and Physical CHIEF COMPLAINT: [70 y/o female c/o uri sx, sob x1 week] HISTORY OF PRESENT ILLNESS: [This is a 70 y/o female with a pmh of htn, simeon, breast ca s/p lumpectomy, copd and depression/anxiety who presents to our ED on 12/24 with a cc of cold/flu symptoms and shortness of breath worsening over 1 weeks time. Patient states that symptoms began suddenly and have been getting progressively worse. Patient currently endorses generalized fatigue, malaise, myalgias, headaches, cough productive of yellow-green sputum, rhinorrhea, nasal congestion, chest tightness and shortness of breath. Patient states that she most notices her shortness of breath with exertion. Patient has taken nyquil at home which she states helped her sleep but seems to not have had great effect on her symptomatology. Patient, at the time of my exam, denies fevers, chills, chest pain, hemoptysis, abd pain, vomiting, diarrhea, dysuria, pedal edema, syncope, recent travel, sick contacts.] PAST MEDICAL HISTORY: 1. [See HPI PAST SURGICAL HISTORY: 1. [Hysterectomy]. 2. [Right lumpectomy]. 3. [Rectocele repair]. SOCIAL HISTORY: Tobacco use:[Smoker since 20s, currently 1/4 ppd] ETOH: [Denies] Illicit drug use: [Denies] FAMILY HISTORY: Reviewed - none pertinent ALLERGIES: Please see below. REVIEW OF SYSTEMS: CONSTITUTIONAL: [See HPI]. HEENT: [See HPI]. CARDIOVASCULAR: [Denies chest pain, palpitations]. RESPIRATORY: [See HPI]. GASTROINTESTINAL: [Admits to nausea. Denies abd pain, diarrhea, vomiting]. GENITOURINARY: [Denies dysuria]. SKIN: [Denies rash]. MUSCULOSKELETAL: [Denies acute joint/back pain]. NEUROLOGICAL: [Denies syncope, paresthesias]. ENDOCRINE: [Denies hx of DM]. HEMATOLOGIC/LYMPHATIC: [Denies hx of vte]. HOME MEDICATIONS: Please see below. PHYSICAL EXAMINATION: VITAL SIGNS: Please see below. GENERAL APPEARANCE: [Fatigued appearing 70 y/o female who is alert and oriented to all questioning. She does not appear to be in any acute distress]. HEENT: [No mass or lesion. EOMI. No scleral icterus. Nares patent. Oral mucosa moist]. CARDIOVASCULAR: [Regular rate, rhythm. No murmurs, rubs, gallops]. LUNGS: [Coarse breath sounds. Scattered wheezing]. ABDOMEN: [Soft, nontender]. MUSCULOSKELETAL: [No joint deformity noted]. EXTREMITIES: [No pedal edema appreciated. No overlying skin changes. Pulses intact]. NEUROLOGICAL: [Speech clear. A+Ox3. No focal deficits]. PSYCHIATRIC: [Mood and affect appear appropriate]. LABORATORY DATA: See below. IMAGING: [Head CT: FINDINGS: The ventricles and sulci are consistent with the patient's age. There are no extra-axial fluid collections. There is no mass effect. The deep cerebral white matter is consistent with the patient's age. The orbital and petrous structures, cerebellopontine angles, and posterior fossa are unremarkable. The sella turcica, cavernous, and paracavernous structures are essentially unremarkable. There are soft tissue densities seen throughout the ethmoid bulla and within the imaged portion of the right maxillary sinus. IMPRESSION: There is no evidence of acute intracranial pathology. There are paranasal sinus soft tissue densities as described above. Mucosal thickening or possibly sinonasal polyposis. CTA Chest: FINDINGS: Pulmonary arteries: No focal pulmonary artery filling defect to suggest acute pulmonary embolus. Pulmonary vascular/interstitial pattern does not suggest active pulmonary edema. Aorta: No thoracic aortic aneurysm or dissection. Lungs: No suspicious lung mass or air space process. No central endobronchial lesion. Pleural spaces: No pleural effusion or pneumothorax. Heart: No overt cardiac enlargement or abnormal volume of pericardial fluid. Lymph nodes: No enlarged mediastinal lymph nodes. Intraperitoneal space: Limited visualization of upper abdomen shows no concerning finding. Bones/joints: Bony structures show no acute fracture or destructive process. Left shoulder arthroplasty and right shoulder degenerative changes are present Soft tissues: No asymmetric abnormality of the extrathoracic soft tissues. IMPRESSION: 1. No evidence of acute pulmonary embolus. 2. No other acute or concerning focal intrathoracic abnormality. ] MICROBIOLOGY: Please see below. ASSESSMENT: [This is a 70 y/o female with a pmh of htn, simeon, breast ca s/p lumpectomy, copd and depression/anxiety who presents to our ED on 12/24 with a cc of cold/flu symptoms and shortness of breath worsening over 1 weeks time. Patient tested + for human rhinovirus/enterovirus on nasopharyngeal swab in the ED]. . PLAN: 1. [COPD exacerbation 2/2 viral uri - Patient has been diagnosed with copd in the past, however never started on any inhaler therapy, continues to smoke - Patient acutely desaturating to mid/low 80s on RA upon exertion in the ED - Patient received 125mg iv solumedrol in the ed - Will schedule duonebs treatments as well as onboard prn combivents - Will begin daily oral prednisone taper - Continuous pulse ox to monitor - Guaifenesin for cough as needed - Tylenol for fever - Admit to med surg under obs for tx 2. HTN - continue metoprolol 3. HLD - continue simvastatin 4. Depression/anxiety - continue paxil 5. Nicotine use - smoking cessation counseling - nicotine patch DVT prophylaxis - teds/scds]. Vital Signs Vital Signs Date Time Temp Pulse Resp B/P (MAP) Pulse Ox O2 Delivery O2 Flow Rate FiO2 12/24/20 16:58 Room Air 12/24/20 16:55 85 12/24/20 16:55 63 145/71 (95) 61 146/75 (98) 57 149/81 (103) 12/24/20 11:39 97.9 18 Laboratory Data Labs 24H Laboratory Tests 2 12/24/20 13:41: Coronavirus (COVID-19)(PCR) NEGATIVE, Influenza Type A (RT-PCR) NEGATIVE, Influenza Type B (RT-PCR) NEGATIVE, Respiratory Syncytial Virus (PCR) NEGATIVE 12/24/20 15:44: Immature Granulocyte % (Auto) 0.2, Neutrophils (%) (Auto) 56.7, Lymphocytes (%) (Auto) 31.2, Monocytes (%) (Auto) 7.4, Eosinophils (%) (Auto) 3.5H, Basophils (%) (Auto) 1.0, Neutrophils # (Auto) 3.4, Lymphocytes # (Auto) 1.9, Monocytes # (Auto) 0.5, Eosinophils # (Auto) 0.2, Basophils # (Auto) 0.1, Nucleated Red Blood Cells % (auto) 0.0, Anion Gap 7L, Glomerular Filtration Rate > 60.0, Calcium Level 8.9, Total Bilirubin 0.5, Direct Bilirubin 0.2, Aspartate Amino Transf (AST/SGOT) 15, Alanine Aminotransferase (ALT/SGPT) 20, Alkaline Phosphatase 84, Lactate Dehydrogenase 147, Total Creatine Kinase 64, Creatine Kinase MB < 1.0, Creatine Kinase MB Relative Index 1.56, Troponin I < 0.02, Total Protein 6.7, Albumin 3.4, Albumin/Globulin Ratio 1.0L 12/24/20 15:47: D-Dimer, Quantitative 694.46H 12/24/20 16:07: Urine Color YELLOW, Urine Appearance CLEAR, Urine pH 7.0, Urine Specific [place] 1.014, Urine Protein NEGATIVE, Urine Glucose (Auto)(UA) NEGATIVE, Urine Ketones (Auto) NEGATIVE, Urine Blood 1+H, Urine Nitrite NEGATIVE, Urine Bilirubin NEGATIVE, Urine Urobilinogen 0.2, Urine Leukocyte Esterase (Auto) NEGATIVE, Urine WBC (Auto) 0, Urine RBC (Auto) 0, Urine Hyaline Casts (Auto) 0, Urine Bacteria (Auto) NEGATIVE, Urine Squamous Epithelial Cells 0, Urine Mucus (Auto) SMALL, Urine Sperm (Auto) CBC/BMP Laboratory Tests 12/24/20 15:44 Microbiology Microbiology 12/24/20 Respiratory Virus Panel (PCR) ([facility]) - Final, Complete Human Rhinovirus/Enterovirus Home Medications Scheduled Anastrozole (Anastrozole) 1 Mg Tablet, 1 TAB PO DAILY Metoprolol Tartrate (Metoprolol Tartrate) 50 Mg Tab, 50 MG PO DAILY Paroxetine HCl (Paxil) 30 Mg Tab, 30 MG PO DAILY Simvastatin (Simvastatin) 40 Mg Tab, 40 MG PO DAILY Scheduled PRN Fluticasone Propionate (Fluticasone Propionate) 16 Gm [place].susp, 1 SPRAY NARES BID PRN for CONGESTION Allergies Coded Allergies: No Known Allergies (Verified , 09/05/20) A-FIB/CHADSVASC A-FIB History Current/History of A-Fib/PAF?: No Current PO Anticoag Therapy: No ERNIE MENDOZA Dec 24, 2020 20:26
[2020-12-24 21:39] LABS: VENOUS HCO3 25.4 MEQ/L (23.0-27.0); VENOUS PARTIAL PRESSURE O2 29.1 mmHg (30.0-50.0); VENOUS PH 7.333 UNITS (7.330-7.430); VENOUS STANDARD HCO3 22.7 MEQ/L; VENOUS TOTAL CO2 26.9 MEQ/L (24.0-28.0)
[2020-12-24] MEDS ORDERED: FLUTICASONE PROP 0.05% NASAL SPRAY 16 GM (FLONASE) NARES PRN (22:05)
[2020-12-25] MEDS: IPRATROPIUM 0.5MG/ALBUTEROL 2.5MG INH SOL UD 3ML (DUONEB) NEB SCH ×3 (04:08→14:00)
--- NOTE | 2020-12-25 07:41 | ECGEPIP ---
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
[2020-12-25] MEDS ORDERED: methylPREDNISolone 125MG 2ML VIAL IV ONE (08:10)
[2020-12-25 08:50] VITALS: BP 120/68
[2020-12-25 08:56] VITALS: BP 110/59
[2020-12-25] MEDS ORDERED: METOPROLOL TART 50 MG TAB PO SCH (09:00)
[2020-12-25] MEDS ORDERED: SIMVASTATIN 40 MG TAB PO SCH (09:00)
[2020-12-25] MEDS ORDERED: predniSONE 20 MG TAB PO SCH (09:00)
[2020-12-25] MEDS ORDERED: PARoxetine 10MG TABLET PO SCH (09:00)
[2020-12-25 09:07] LABS: HEMATOCRIT 40.2 % (36.0-47.0); HEMOGLOBIN 13.1 g/dl (12.0-15.5); MEAN CORPUSCULAR HGB CONC 32.6 g/dl (32.0-36.5); MEAN CORPUSCULAR VOLUME 85.9 fl (80.0-96.0); PLATELET COUNT, AUTOMATED 231 10^3/uL (150-450); RED BLOOD COUNT 4.68 10^6/uL (4.00-5.40)
[2020-12-25 09:14] LABS: CALCIUM LEVEL 9.2 MG/DL (8.8-10.2); CREATININE FOR GFR 1.11 MG/DL (0.55-1.30); GLOMERULAR FILTRATION RATE 51.9 (>45); MAGNESIUM LEVEL 1.7 MG/DL (1.8-2.4); POTASSIUM SERUM 3.6 MEQ/L (3.5-5.1)
--- NOTE | 2020-12-25 11:01 | DS.PDOC ---
Discharge Summary General Date of Admission Dec 24, 2020 at 11:39 Date of Discharge 12/25/20 Discharge Summary PROCEDURES PERFORMED DURING STAY: [None]. ADMITTING DIAGNOSES: acute COPD exacerbation hx HTN hx HLD hx Depression and anxiety DISCHARGE DIAGNOSES: acute COPD exacerbation hx HTN hx HLD hx Depression and anxiety COMPLICATIONS/CHIEF COMPLAINT: Copd Exacerbation. HISTORY OF PRESENT ILLNESS: Obtained from H&P:"This is a 70 y/o female with a pmh of htn, simeon, breast ca s/p lumpectomy, copd and depression/anxiety who presents to our ED on 12/24 with a cc of cold/flu symptoms and shortness of breath worsening over 1 weeks time. Patient states that symptoms began suddenly and have been getting progressively worse. Patient currently endorses generalized fatigue, malaise, myalgias, headaches, cough productive of yellow- green sputum, rhinorrhea, nasal congestion, chest tightness and shortness of breath. Patient states that she most notices her shortness of breath with exertion. Patient has taken nyquil at home which she states helped her sleep but seems to not have had great effect on her symptomatology. Patient, at the time of my exam, denies fevers, chills, chest pain, hemoptysis, abd pain, vomiting, diarrhea, dysuria, pedal edema, syncope, recent travel, sick contacts." HOSPITAL COURSE: COPD exacerbation likely 2/2 viral URI - patient has had exacerbations in the past, continues to smoke - Patient received 125mg IV solumedrol, followed by q8h dosing - received ricardo combjorget - start symbicort - Will begin daily oral prednisone taper - Guaifenesin prn cough - Tylenol for fever prn - wheezing resolved, saturating at 95% on RA HTN - continue metoprolol HLD - continue simvastatin Depression/anxiety - continue paxil Nicotine use - smoking cessation counseling - nicotine patch DISCHARGE MEDICATIONS: Please see below. ALLERGIES: Please see below. PHYSICAL EXAMINATION ON DISCHARGE: VITAL SIGNS: Please see below. GENERAL: comfortable HEENT: PERRLA NECK: supple, normal ROM CARDIOVASCULAR EXAMINATION: RRR, normal S1, S2 RESPIRATORY EXAMINATION: lungs CTAB, no wheeze heard, no rales, no rhonchi ABDOMINAL EXAMINATION: soft, nontender to palpation, BS+ EXTREMITIES: SKIN: war, dry NEUROLOGICAL EXAMINATION: speech clear, moving all 4 extremities, no facial asym metry LABORATORY DATA: Please see below. IMAGING: Head CT: FINDINGS: The ventricles and sulci are consistent with the patient's age. There are no extra-axial fluid collections. There is no mass effect. The deep cerebral white matter is consistent with the patient's age. The orbital and petrous structures, cerebellopontine angles, and posterior fossa are unremarkable. The sella turcica, cavernous, and paracavernous structures are essentially unremarkable. There are soft tissue densities seen throughout the ethmoid bulla and within the imaged portion of the right maxillary sinus. IMPRESSION: There is no evidence of acute intracranial pathology. There are paranasal sinus soft tissue densities as described above. Mucosal thickening or possibly sinonasal polyposis. CTA Chest: FINDINGS: Pulmonary arteries: No focal pulmonary artery filling defect to suggest acute pulmonary embolus. Pulmonary vascular/interstitial pattern does not suggest active pulmonary edema. Aorta: No thoracic aortic aneurysm or dissection. Lungs: No suspicious lung mass or air space process. No central endobronchial lesion. Pleural spaces: No pleural effusion or pneumothorax. Heart: No overt cardiac enlargement or abnormal volume of pericardial fluid. Lymph nodes: No enlarged mediastinal lymph nodes. Intraperitoneal space: Limited visualization of upper abdomen shows no concerning finding. Bones/joints: Bony structures show no acute fracture or destructive process. Left shoulder arthroplasty and right shoulder degenerative changes are present Soft tissues: No asymmetric abnormality of the extrathoracic soft tissues. IMPRESSION: 1. No evidence of acute pulmonary embolus. 2. No other acute or concerning focal intrathoracic abnormality. PROGNOSIS: good ACTIVITY: [As tolerated]. DIET: as tolerated DISCHARGE PLAN: DISPOSITION: home DISCHARGE INSTRUCTIONS: F/u PCP 3-5 days. Referral to pulmonology 2-4 weeks Take medications as prescribed If you develop worsening shortness of breath, chest pain, fever, cough or otherwise worsening of your symptoms, please call 911 or return to the ER. DISCHARGE CONDITION: [Stable]. TIME SPENT ON DISCHARGE: 35 minutes Vital Signs/I&Os Vital Signs Date Time Temp Pulse Resp B/P (MAP) Pulse Ox O2 Delivery O2 Flow Rate FiO2 12/25/20 08:56 97.8 88 18 110/59 (76) 95 Room Air Laboratory Data Labs 24H Laboratory Tests 2 12/24/20 13:41: Coronavirus (COVID-19)(PCR) NEGATIVE, Influenza Type A (RT-PCR) NEGATIVE, Influenza Type B (RT-PCR) NEGATIVE, Respiratory Syncytial Virus (PCR) NEGATIVE 12/24/20 15:44: Immature Granulocyte % (Auto) 0.2, Neutrophils (%) (Auto) 56.7, Lymphocytes (%) (Auto) 31.2, Monocytes (%) (Auto) 7.4, Eosinophils (%) (Auto) 3.5H, Basophils (%) (Auto) 1.0, Neutrophils # (Auto) 3.4, Lymphocytes # (Auto) 1.9, Monocytes # (Auto) 0.5, Eosinophils # (Auto) 0.2, Basophils # (Auto) 0.1, Nucleated Red Blood Cells % (auto) 0.0, Anion Gap 7L, Glomerular Filtration Rate > 60.0, Calci um Level 8.9, Total Bilirubin 0.5, Direct Bilirubin 0.2, Aspartate Amino Transf (AST/SGOT) 15, Alanine Aminotransferase (ALT/SGPT) 20, Alkaline Phosphatase 84, Lactate Dehydrogenase 147, Total Creatine Kinase 64, Creatine Kinase MB < 1.0, Creatine Kinase MB Relative Index 1.56, Troponin I < 0.02, Total Protein 6.7, Albumin 3.4, Albumin/Globulin Ratio 1.0L 12/24/20 15:47: D-Dimer, Quantitative 694.46H 12/24/20 16:07: Urine Color YELLOW, Urine Appearance CLEAR, Urine pH 7.0, Urine Specific [place] 1.014, Urine Protein NEGATIVE, Urine Glucose (Auto)(UA) NEGATIVE, Urine Ketones (Auto) NEGATIVE, Urine Blood 1+H, Urine Nitrite NEGATIVE, Urine Bilirubin NE GATIVE, Urine Urobilinogen 0.2, Urine Leukocyte Esterase (Auto) NEGATIVE, Urine WBC (Auto) 0, Urine RBC (Auto) 0, Urine Hyaline Casts (Auto) 0, Urine Bacteria (Auto) NEGATIVE, Urine Squamous Epithelial Cells 0, Urine Mucus (Auto) SMALL, Urine Sperm (Auto) 12/24/20 21:12: Blood Gas Bicarbonate Standard 22.7, Venous Blood pH 7.333, Venous Blood Partial Pressure CO2 49.0, Venous Blood Partial Pressure O2 29.1L, Venous Blood Total Carbon Dioxide 26.9, Venous Blood HCO3 25.4, Venous Blood Oxygen Saturation 56.0L, Venous Blood Base Excess -1.0, Procalcitonin <0.05 12/25/20 08:11: Nucleated Red Blood Cells % (auto) 0.0, Anion Gap 9, Glomerular Filtration Rate 51.9, Calcium Level 9.2, Magnesium Level 1.7L CBC/BMP Laboratory Tests 12/24/20 15:44 12/25/20 08:11 Microbiology Microbiology 12/24/20 Respiratory Virus Panel (PCR) ([facility]) - Final, Complete Human Rhinovirus/Enterovirus Discharge Medications Scheduled Anastrozole (Anastrozole) 1 Mg Tablet, 1 TAB PO DAILY Budesonide/Formoterol (Symbicort 80-4.5 Mcg Inhaler) 6.9 Gm Hfa.aer.ad, 2 PUFF INH BID Metoprolol Tartrate (Metoprolol Tartrate) 50 Mg Tab, 50 MG PO DAILY Paroxetine HCl (Paxil) 30 Mg Tab, 30 MG PO DAILY Prednisone (Prednisone) 10 Mg Tablet, 10 MG PO TAPER Take 4 tabs daily x 3 days, then 3 tabs daily x 3 days, then 2 tabs daily x 3 days, then 1 tab daily x 3 days and stop Simvastatin (Simvastatin) 40 Mg Tab, 40 MG PO DAILY Scheduled PRN Acetaminophen (Acetaminophen) 325 Mg Tablet, 650 MG PO Q4H PRN for MILD PAIN or TEMP > 101 Albuterol Sulfate (Ventolin Hfa) 18 Gm Hfa.aer.ad, 2 PUFF INH Q4-6HP PRN for wheezing Fluticasone Propionate (Fluticasone Propionate) 16 Gm [place].susp, 1 SPRAY NARES BID PRN for CONGESTION, (Reported) Guaifenesin (Guaifenesin) 200 Mg Tablet, 200 MG PO Q6HP PRN for cough Allergies Coded Allergies: No Known Allergies (Verified , 09/05/20) MICHELLE BARRERA MD Dec 25, 2020 11:01
[2020-12-25] MEDS ORDERED: SYMB80INH INH (11:09)
[2020-12-25] MEDS ORDERED: PRED10TA2 PO (11:09)
[2020-12-25] MEDS ORDERED: VENTAER INH (11:09)
[2020-12-25] MEDS ORDERED: GUAI20TA PO (11:09)
[2020-12-25] MEDS ORDERED: ACET1TAB55 PO (11:09)
== END 2020-12-26 11:57 | disposition home or self-care (01) ==
LOC: M ED 11:38 → M ED INP 11:39
PROVIDERS: ADMIT Internal Medicine; ATTEND Internal Medicine
DX: J44.0 Chronic obstructive pulmonary disease with (acute) lower respiratory infection (principal); I10 Essential (primary) hypertension; E78.5 Hyperlipidemia, unspecified; F41.9 Anxiety disorder, unspecified; F32.9 Major depressive disorder, single episode, unspecified; R53.83 Other fatigue; R53.81 Other malaise; M79.10 Myalgia, unspecified site; R51.9 Headache, unspecified; G47.33 Obstructive sleep apnea (adult) (pediatric); C50.919 Malignant neoplasm of unspecified site of unspecified female breast; F17.211 Nicotine dependence, cigarettes, in remission; Z79.899 Other long term (current) drug therapy; Z79.52 Long term (current) use of systemic steroids; Z79.51 Long term (current) use of inhaled steroids
CPT/HCPCS: 36415; 70450; 71275; 80048; 80053; 81001; 82248; 82550; 82553; 82803; 83615; 83735; 84145; 84484; 85025; 85027; 85379; 87631; 87798; 93005; 93041; 94640; 96374; 96376; 99285; G0378; J2930; Q9967

== ENCOUNTER → 2021-02-26 | Outpatient (CLI) | payer MEDICARE ==
[~2021-02-26] MED LIST changes: +ACET1TAB55 PO; +FLUTISP NARES; +GUAI20TA PO; +PRED10TA2 PO; +SYMB80INH INH; +VENTAER INH
--- NOTE | 2021-02-26 11:59 | REPMRS ---
Patient History The patient states she has not had a clinical breast exam in over a year. Patient has history of cancer in the right breast at age 69 and has history of cancer in the right breast at age 68. Family history of breast cancer at age 50 or over in sister, breast cancer in niece. Malignant excisional biopsy of the right breast, 2019. Radiation therapy of the right breast, 2019. Taking unspecified hormones for 2 years. Patient states no breast complaints today. Patient has signed MRS History Sheet. Digital Woman Screen Mammo: February 26, 2021 - Exam #: [id number] Bilateral CC and MLO view(s) were taken. Technologist: Chata Mcarthur, Technologist Prior study comparison: February 26, 2020, bilateral digital woman screen mammo performed at [facility]. August 02, 2018, right breast diagnostic unilateral mammo, performed at [address] FINDINGS: There are scattered fibroglandular densities. Screening. This patient?s lifetime risk for the development of invasive breast cancer can?t be calculated due to her age (less than 20 or greater than 85 years) or a prior history of in situ or invasive breast cancer. Digital screening (2D) mammography was performed bilaterally. Additionally, breast tomosynthesis (3D mammography) was performed bilaterally in the CC and MLO projections. Today's exam was compared to the prior exam/exams. By history, the patient has no complaints of a palpable breast abnormality or other significant breast complaints. The patient is status post lumpectomy/chemo radiation therapy due to breast carcinoma. The breasts are unchanged in size and shape. There are no candelaria-areas of internal architectural distortion. There are no candelaria-soft tissue densities or areas of spiculation. There is unchanged post radiation skin thickening. Once again, stable benign appearing calcifications are seen. IMPRESSION: BI-RADS Category 2- Benign Findings. There is no evidence of malignant alteration of the breasts. Routine bilateral screening mammogram recommended at its regularly scheduled annual interval. The Volpara volumetric breast density category is B, there are scattered areas of fibroglandular densities. This mammogram was read with the assistance of Possible Web,an FDA approved computer aided detection system for mammography. Negative x-ray reports should not delay surgical consultation if a dominant or clinically suspicious mass is present. Not all breast cancers can be identified by mammography. Therefore, we recommend that you continue to perform regular breast self-examination and physical examination and then promptly contact your physician of any concerns or changes. Adenosis and dense breasts may obscure an underlying neoplasm. Assessment: BI-RADS/ACR category 2 mammogram. Benign Findings. Recommendation Routine screening mammogram of both breasts in 1 year. Electronically Signed By: Butch Maxwell DO 02/26/21 [id number]
== END ==
LOC: M WHC 10:51
PROVIDERS: ATTEND Internal Medicine
DX: Z12.31 Encounter for screening mammogram for malignant neoplasm of breast (principal); C50.919 Malignant neoplasm of unspecified site of unspecified female breast; Z92.3 Personal history of irradiation; Z80.3 Family history of malignant neoplasm of breast

== ENCOUNTER → 2021-06-09 | Outpatient (CLI) | payer MEDICARE, MEDICAID ==
[~2021-06-09] MED LIST changes: +CALCCHW4 PO
== END ==
LOC: M RAD 12:16
PROVIDERS: ATTEND Physician Assistant
DX: M43.04 Spondylolysis, thoracic region (principal); M43.02 Spondylolysis, cervical region; M43.06 Spondylolysis, lumbar region; M48.062 Spinal stenosis, lumbar region with neurogenic claudication; M19.011 Primary osteoarthritis, right shoulder; M25.511 Pain in right shoulder; Z96.642 Presence of left artificial hip joint; M25.78 Osteophyte, vertebrae; M81.0 Age-related osteoporosis without current pathological fracture

== ENCOUNTER → 2021-10-21 | Outpatient (CLI) | payer MEDICARE, MEDICAID | LOC: M WHC 09:56 | PROVIDERS: ATTEND Internal Medicine | DX: N63.10 Unspecified lump in the right breast, unspecified quadrant (principal); Z85.3 Personal history of malignant neoplasm of breast | CPT/HCPCS: 77065; G0279 ==

== ENCOUNTER → 2021-12-30 | Outpatient (CLI) | payer MEDICARE, MEDICAID ==
[~2021-12-30] MED LIST changes: +CALC-356
== END ==
LOC: M WHC 10:44
PROVIDERS: ATTEND Obstetrics & Gynecology
DX: Z85.3 Personal history of malignant neoplasm of breast (principal)

== ENCOUNTER → 2022-01-06 | Outpatient (CLI) | payer MEDICARE, MEDICAID | LOC: M RAD 13:20 | PROVIDERS: ATTEND Physician Assistant | DX: Z12.2 Encounter for screening for malignant neoplasm of respiratory organs (principal); F17.218 Nicotine dependence, cigarettes, with other nicotine-induced disorders ==

== ENCOUNTER → 2022-02-24 | Outpatient (CLI) | payer MEDICARE, MEDICAID ==
[~2022-02-24] MED LIST changes: -PAXI30TA11 PO; +PAXI30TA12 PO
== END ==
LOC: M WHC 10:35
PROVIDERS: ATTEND Physician Assistant
DX: Z12.31 Encounter for screening mammogram for malignant neoplasm of breast (principal); Z85.3 Personal history of malignant neoplasm of breast
CPT/HCPCS: 77066; G0279

== ENCOUNTER → 2022-04-12 | Outpatient (CLI) | payer MEDICARE, MEDICAID | LOC: M WHC 10:06 | PROVIDERS: ATTEND Internal Medicine | DX: Z13.820 Encounter for screening for osteoporosis (principal); M81.0 Age-related osteoporosis without current pathological fracture ==

== ENCOUNTER → 2022-04-23 | Outpatient (CLI) | payer MEDICARE, MEDICAID ==
[2022-04-23 10:34] LABS: FOLATE 18.9 NG/ML (>5.4); THYROID STIMULATING HORMONE 1.936 uIU/ML (0.55-4.78)
[2022-04-28 20:07] LABS: VITAMIN B1 LEVEL WHOLE BLOOD 115.1 nmol/L (66.5-200.0); VITAMIN E(GAMMA TOCOPHEROL) 1.6 mg/L (0.5-4.9)
== END ==
LOC: M LAB 09:09
PROVIDERS: ATTEND Psychiatry & Neurology Neurology
DX: E51.9 Thiamine deficiency, unspecified (principal); D51.9 Vitamin B12 deficiency anemia, unspecified; E53.1 Pyridoxine deficiency; E56.0 Deficiency of vitamin E; E03.9 Hypothyroidism, unspecified

== ENCOUNTER → 2022-05-04 | Outpatient (CLI) | payer MEDICARE, MEDICAID | LOC: M RAD 12:38 | PROVIDERS: ATTEND Physician Assistant | DX: M25.561 Pain in right knee (principal) ==

== ENCOUNTER → 2022-11-20 | Outpatient (CLI) | payer MEDICARE, MEDICAID ==
[~2022-11-20] MED LIST changes: +FLUT50SP17 NARES; -FLUTISP NARES; +MELO15TA28 PO
== END ==
LOC: M RAD 10:31
PROVIDERS: ATTEND Physician Assistant Medical
DX: M25.511 Pain in right shoulder (principal)

== ENCOUNTER → 2023-01-05 | Outpatient (REF) | payer MEDICARE, MEDICAID ==
[2023-01-05 18:22] LABS: ALKALINE PHOSPHATASE 91 U/L (46-116); ALT/SGPT 22 U/L (7.0-40); AST/SGOT 23 U/L (<34); BILIRUBIN,TOTAL 0.6 MG/DL (0.3-1.2); BLOOD UREA NITROGEN 14 MG/DL (9-23); CALCIUM LEVEL 9.4 MG/DL (8.3-10.6); CARBON DIOXIDE LEVEL 27 MMOL/L (20-31); CHLORIDE LEVEL 106 MMOL/L (98-107); CHOLESTEROL LEVEL 170 MG/DL (<200); CHOLESTEROL RISK RATIO 3.16 (<5); CREATININE FOR GFR 0.79 MG/DL (0.55-1.30); GLOMERULAR FILTRATION RATE > 60.0 (>39); GLUCOSE, FASTING 86 MG/DL (74-106); HDL CHOLESTEROL 53.7 MG/DL (>40); LDL CHOLESTEROL 96.7 MG/DL (<100); NON-HDL-C 116.3 MG/DL; POTASSIUM SERUM 5.1 MMOL/L (3.5-5.1); SODIUM LEVEL 142 MMOL/L (136-145); TOTAL PROTEIN 7.3 G/DL (5.7-8.2); TRIGLYCERIDES LEVEL 98 MG/DL (<150)
[2023-01-05 18:23] LABS: THYROID STIMULATING HORMONE 2.153 uIU/ML (0.55-4.78)
[2023-01-05 19:05] LABS: TOTAL 25(OH) VITAMIN D 23.3 NG/ML (20.0-100.0)
== END ==
LOC: M LAB REF 16:39
PROVIDERS: ATTEND Nurse Practitioner Family
DX: E78.5 Hyperlipidemia, unspecified (principal); I10 Essential (primary) hypertension; E55.9 Vitamin D deficiency, unspecified; Z79.899 Other long term (current) drug therapy

== ENCOUNTER 2023-02-19 09:19 | Emergency (ER) | payer MEDICARE, MEDICAID ==
[~2023-02-19] VITALS: Ht 157.5 cm; Wt 66.3 kg
[~2023-02-19 09:19] MED LIST changes: -FLUT50SP17 NARES; +FLUTISP NARES
[2023-02-19] MEDS ORDERED: OFLO5DRO (10:23)
[2023-02-19] MEDS ORDERED: AMOX875T (10:23)
[2023-02-19] MEDS ORDERED: CYAN-1 (10:23)
[2023-02-19] MEDS ORDERED: VITA100T14 (10:23)
[2023-02-19] MEDS ORDERED: ALBU6.7H6 INH (10:52)
[2023-02-19 11:15] VITALS: BP 124/60; TEMP 98.2; O2SAT 97
== END 2023-02-19 11:25 | disposition home or self-care (01) ==
LOC: M ED 09:19
DX: J06.9 Acute upper respiratory infection, unspecified (principal); B97.4 Respiratory syncytial virus as the cause of diseases classified elsewhere; Z11.52 Encounter for screening for COVID-19; I10 Essential (primary) hypertension; G47.30 Sleep apnea, unspecified; Z87.891 Personal history of nicotine dependence; Z92.21 Personal history of antineoplastic chemotherapy; Z92.3 Personal history of irradiation; Z85.3 Personal history of malignant neoplasm of breast

== ENCOUNTER → 2023-03-02 | Outpatient (CLI) | payer MEDICARE, MEDICAID ==
[~2023-03-02] MED LIST changes: +ALBU6.7H6 INH; +AMOX875T; +CYAN-1; +OFLO5DRO; +VITA100T14
== END ==
LOC: M WHC 10:37
PROVIDERS: ATTEND Nurse Practitioner Family
DX: Z85.3 Personal history of malignant neoplasm of breast (principal)
CPT/HCPCS: 77066; G0279

== ENCOUNTER → 2023-03-16 | Outpatient (CLI) | payer MEDICARE, MEDICAID | LOC: M RAD 09:12 | PROVIDERS: ATTEND Orthopaedic Surgery | DX: M19.011 Primary osteoarthritis, right shoulder (principal); M25.711 Osteophyte, right shoulder ==

== ENCOUNTER → 2023-04-13 | Outpatient (CLI) | payer MEDICARE, MEDICAID | LOC: M RAD 08:42 | PROVIDERS: ATTEND Orthopaedic Surgery Hand Surgery | DX: M13.811 Other specified arthritis, right shoulder (principal); M25.811 Other specified joint disorders, right shoulder ==

== ENCOUNTER 2023-04-22 14:38 | Emergency (ER) | payer MEDICARE, MEDICAID ==
[~2023-04-22] VITALS: Ht 157.5 cm; Wt 65.2 kg
[2023-04-22] MEDS ORDERED: AZIT-12 (14:51)
[2023-04-22] MEDS ORDERED: BENZ200C70 PO (17:20)
[2023-04-22] MEDS ORDERED: PRED20TA PO (17:20)
[2023-04-22 17:45] VITALS: BP 123/65; TEMP 100.2; O2SAT 94
== END 2023-04-22 17:55 | disposition home or self-care (01) ==
LOC: M ED 14:38
DX: J20.9 Acute bronchitis, unspecified (principal); J44.9 Chronic obstructive pulmonary disease, unspecified; N39.0 Urinary tract infection, site not specified; K44.9 Diaphragmatic hernia without obstruction or gangrene; Z87.440 Personal history of urinary (tract) infections; Z79.899 Other long term (current) drug therapy

== ENCOUNTER → 2023-05-04 | Outpatient (CLI) | payer MEDICARE, MEDICAID ==
[~2023-05-04] MED LIST changes: +AZIT-12; +BENZ200C70 PO; +PRED20TA PO
== END ==
LOC: M EKG 10:58
PROVIDERS: ATTEND Physician Assistant
DX: Z01.818 Encounter for other preprocedural examination (principal); I10 Essential (primary) hypertension; R94.31 Abnormal electrocardiogram [ECG] [EKG]

== ENCOUNTER → 2023-05-12 | Outpatient (REF) | payer MEDICARE, MEDICAID ==
[2023-05-12 17:46] LABS: HEMATOCRIT 39.7 % (36.0-47.0); MEAN CORPUSCULAR HEMOGLOBIN 27.7 pg (27.0-33.0); MEAN CORPUSCULAR HGB CONC 32.7 g/dl (32.0-36.5); MEAN CORPUSCULAR VOLUME 84.5 fl (80.0-96.0); PLATELET COUNT, AUTOMATED 162 10^3/uL (150-450); WHITE BLOOD COUNT 5.2 10^3/uL (4.0-10.0)
[2023-05-12 18:15] LABS: BLOOD UREA NITROGEN 13 MG/DL (9-23); CALCIUM LEVEL 8.9 MG/DL (8.3-10.6); CARBON DIOXIDE LEVEL 27 MMOL/L (20-31); CHLORIDE LEVEL 108 MMOL/L (98-107); CREATININE FOR GFR 0.68 MG/DL (0.55-1.30); GLOMERULAR FILTRATION RATE > 60.0 (>39); GLUCOSE, FASTING 90 MG/DL (74-106); SODIUM LEVEL 140 MMOL/L (136-145)
== END ==
LOC: M LAB REF 16:31
PROVIDERS: ATTEND Physician Assistant
DX: I10 Essential (primary) hypertension (principal)

== ENCOUNTER 2023-05-18 06:13 | Day surgery (SDC) | payer MEDICARE, MEDICAID ==
[~2023-05-18] VITALS: Ht 157.5 cm; Wt 65.8 kg
[~2023-05-18 06:13] MED LIST changes: +LR 1,000 ML IV SCH
[2023-05-18] MEDS ORDERED: ceFAZolin SOD 2 GM in IV 1 EA IV ONE (06:55)
[2023-05-18] MEDS ORDERED: CLINDAMYCIN 600MG/50ML PREMIX BAG As Ordered ONE (07:08)
[2023-05-18] MEDS ORDERED: ceFAZolin 2 GM/D5W 50 ML IV BAG As Ordered ONE (07:08)
[2023-05-18] MEDS ORDERED: fentaNYL 100 MCG/2 ML INJECTION As Ordered ONE (07:09)
[2023-05-18] MEDS ORDERED: EPINEPHrine 1MG/ML INJ 30ML MD-VIAL As Ordered ONE (07:09)
[2023-05-18] MEDS ORDERED: EPINEPHrine INJ 1 MG/ML 1ML AMP As Ordered ONE (07:09)
[2023-05-18] MEDS ORDERED: MIDAZOLAM INJ 2MG/2ML VIAL As Ordered ONE (07:09)
[2023-05-18] MEDS ORDERED: ROCURONIUM BROMIDE 50MG/5ML VIAL As Ordered ONE (07:10)
[2023-05-18] MEDS ORDERED: ONDANSETRON 4MG 2ML VIAL As Ordered ONE (07:10)
[2023-05-18] MEDS ORDERED: PHENYLEPHRINE 10MG/ML 1ML VIAL As Ordered ONE (07:10)
[2023-05-18] MEDS ORDERED: LIDOCAINE 2% 100MG/5ML SDV (FOR ANES.) As Ordered ONE (07:10)
[2023-05-18] MEDS ORDERED: propofoL 200 MG/20 ML VIAL As Ordered ONE (07:10)
[2023-05-18] MEDS ORDERED: VANCOMYCIN 1000MG/20ML VIAL As Ordered ONE (07:11)
[2023-05-18] MEDS ORDERED: LACRILUBE (AKWA TEARS) OPHTH OINT 3.5GM As Ordered ONE (07:19)
[2023-05-18] MEDS ORDERED: LIDOCAINE 1% SDV 5ML VIAL PN ONE (07:20)
[2023-05-18] MEDS ORDERED: dexAMETHasone 10MG/1ML VIAL PRES.FREE PN ONE ×2 (07:20→07:30)
[2023-05-18] MEDS ORDERED: ROPIvacaine 0.5% 30ML VIAL PN ONE (07:20)
[2023-05-18] MEDS ORDERED: EPINEPHrine INJ 1 MG/ML 1ML AMP PN ONE (07:30)
[2023-05-18] MEDS: fentaNYL 100 MCG/2 ML INJECTION IV PRN (07:30)
[2023-05-18] MEDS: MIDAZOLAM INJ 2MG/2ML VIAL IV PRN (07:31)
[2023-05-18] MEDS ORDERED: ACETAMINOPHEN 1000MG 100ML IV BAG As Ordered ONE (07:31)
[2023-05-18] MEDS: LIDOCAINE W/EPINEPHRINE 1% 20ML VIAL As Ordered ONE (08:15)
[2023-05-18] MEDS: TRANEXAMIC ACID 100 MG/ML 10ML VIAL As Ordered ONE (08:22)
[2023-05-18] MEDS ORDERED: SUGAMMADEX SODIUM 500 MG/5 ML VIAL (BRIDION) As Ordered ONE (09:03)
[2023-05-18] MEDS ORDERED: fentaNYL 100 MCG/2 ML INJECTION IV PRN (10:30)
[2023-05-18] MEDS ORDERED: oxyCODONE 5MG TAB PO PRN (10:30)
[2023-05-18] MEDS ORDERED: ONDANSETRON 4MG 2ML VIAL IV PRN (10:30)
[2023-05-18] MEDS ORDERED: HYDROMORPHONE HCL 0.5 MG/ 0.5 ML SYRINGE IV PRN (10:30)
[2023-05-18] MEDS ORDERED: LR 1,000 ML IV SCH (10:30)
[2023-05-18] MEDS ORDERED: PERCOCET PO (14:09)
[2023-05-18 14:35] VITALS: BP 134/62; TEMP 98.3; O2SAT 94
== END 2023-05-18 15:15 | disposition home or self-care (01) ==
LOC: M SDC 06:13
PROVIDERS: ATTEND Orthopaedic Surgery Hand Surgery
DX: M13.811 Other specified arthritis, right shoulder (principal); M25.811 Other specified joint disorders, right shoulder; G47.30 Sleep apnea, unspecified; Z87.891 Personal history of nicotine dependence; Z79.899 Other long term (current) drug therapy
CPT/HCPCS: 23472; 64415; 73020; C1713; J0131; J0171; J1100; J2250; J2371; J2405; J3010; J3370

== ENCOUNTER → 2023-05-26 | Outpatient (CLI) | payer MEDICARE, MEDICAID ==
[~2023-05-26] MED LIST changes: -LR 1,000 ML IV SCH; +PERCOCET PO
== END ==
LOC: M SOG 09:46
PROVIDERS: ATTEND Physician Assistant
DX: Z47.1 Aftercare following joint replacement surgery (principal); Z96.611 Presence of right artificial shoulder joint

== ENCOUNTER 2023-06-14 11:03 | Emergency (ER) | payer MEDICARE, MEDICAID ==
[~2023-06-14] VITALS: Ht 157.5 cm; Wt 64.3 kg
[2023-06-14] MEDS ORDERED: BENZ200C70 (11:41)
[2023-06-14] MEDS ORDERED: CEFD1CAP9 (11:41)
[2023-06-14] MEDS: IPRATROPIUM 0.5MG/ALBUTEROL 2.5MG INH SOL UD 3ML (DUONEB) NEB ONE (15:38)
[2023-06-14 15:41] LABS: BASO # 0.1 10^3/uL (0.0-0.2); BASO % 1.2 % (0.0-1.0); EOS # 1.3 10^3/uL (0.0-0.5); HEMATOCRIT 36.2 % (36.0-47.0); HEMOGLOBIN 11.7 g/dl (12.0-15.5); LYMPH # 1.3 10^3/uL (1.5-5.0); LYMPH % 22.5 % (24.0-44.0); MEAN CORPUSCULAR HEMOGLOBIN 28.3 pg (27.0-33.0); MEAN CORPUSCULAR HGB CONC 32.3 g/dl (32.0-36.5); MEAN CORPUSCULAR VOLUME 87.4 fl (80.0-96.0); MONO # 0.6 10^3/uL (0.0-0.8); MONO % 9.4 % (2.0-8.0); NEUTROPHILS # 2.6 10^3/uL (1.5-8.5); NEUTROPHILS % 44.2 % (36.0-66.0); PLATELET COUNT, AUTOMATED 248 10^3/uL (150-450); RED BLOOD COUNT 4.14 10^6/uL (4.00-5.40); WHITE BLOOD COUNT 5.9 10^3/uL (4.0-10.0)
[2023-06-14] MEDS: methylPREDNISolone 125MG 2ML VIAL IV ONE (15:44)
[2023-06-14 15:48] LABS: EOS % 22.5 % (0.0-3.0)
[2023-06-14 15:58] VITALS: TEMP 98
[2023-06-14 16:08] LABS: CK-MB VALUE MASS < 1.0 NG/ML (<3.6)
[2023-06-14 16:10] LABS: ALKALINE PHOSPHATASE 98 U/L (46-116); ALT/SGPT 13 U/L (7.0-40); AST/SGOT 16 U/L (<34); BILIRUBIN,DIRECT 0.2 MG/DL (<0.4); BILIRUBIN,TOTAL 0.5 MG/DL (0.3-1.2); BLOOD UREA NITROGEN 12 MG/DL (9-23); CALCIUM LEVEL 9.1 MG/DL (8.3-10.6); CARBON DIOXIDE LEVEL 28 MMOL/L (20-31); CHLORIDE LEVEL 106 MMOL/L (98-107); GLOMERULAR FILTRATION RATE > 60.0 (>39); GLUCOSE, FASTING 84 MG/DL (74-106); POTASSIUM SERUM 3.8 MMOL/L (3.5-5.1); SODIUM LEVEL 142 MMOL/L (136-145); TOTAL PROTEIN 6.9 G/DL (5.7-8.2)
[2023-06-14 16:14] LABS: CPK CREATINE PHOSPHOKINASE 74 U/L (34-145); MB/CK RELATIVE INDEX 1.35 (< OR =4)
[2023-06-14] MEDS ORDERED: ISOVUE-370 76% 100ML VIAL As Ordered ONE (16:23)
[2023-06-14 16:33] LABS: CK-MB VALUE MASS < 1.0 NG/ML (<3.6)
[2023-06-14 16:35] LABS: CPK CREATINE PHOSPHOKINASE 75 U/L (34-145); MB/CK RELATIVE INDEX 1.33 (< OR =4)
[2023-06-14 17:15] VITALS: BP 140/73; O2SAT 97
[2023-06-14 17:40] VITALS: O2SAT 97
[2023-06-14] MEDS ORDERED: ALBU6.7H6 INH (17:53)
== END 2023-06-14 18:23 | disposition home or self-care (01) ==
LOC: M ED 15:08
DX: J20.9 Acute bronchitis, unspecified (principal); I10 Essential (primary) hypertension; G47.30 Sleep apnea, unspecified; Z87.891 Personal history of nicotine dependence; Z79.899 Other long term (current) drug therapy
CPT/HCPCS: 71046; 71275; 80048; 80076; 82550; 82553; 83880; 84443; 84484; 85025; 87040; 87486; 87581; 87633; 87798; 93005; 93041; 94640; 94760; 96374; 99285; J2919; Q9967

== ENCOUNTER → 2023-07-01 | Outpatient (CLI) | payer MEDICARE, MEDICAID ==
[~2023-07-01] MED LIST changes: +BENZ200C70; +CEFD1CAP9
== END ==
LOC: M SOG 13:21
PROVIDERS: ATTEND Physician Assistant
DX: Z47.1 Aftercare following joint replacement surgery (principal); Z96.611 Presence of right artificial shoulder joint

== ENCOUNTER → 2023-11-30 | Outpatient (CLI) | payer MEDICARE, MEDICAID | LOC: M PLAIMG 13:20 | PROVIDERS: ATTEND Physician Assistant | DX: J32.9 Chronic sinusitis, unspecified (principal); R09.81 Nasal congestion ==

== ENCOUNTER → 2024-01-04 | Outpatient (REF) | payer MEDICARE, MEDICAID ==
[2024-01-04 18:37] LABS: BASO % 0.6 % (0.0-1.0); EOS # 0.2 10^3/uL (0.0-0.5); EOS % 3.8 % (0.0-3.0); HEMATOCRIT 38.8 % (36.0-47.0); HEMOGLOBIN 12.8 g/dl (12.0-15.5); LYMPH # 1.5 10^3/uL (1.5-5.0); LYMPH % 28.8 % (24.0-44.0); MEAN CORPUSCULAR HEMOGLOBIN 27.5 pg (27.0-33.0); MEAN CORPUSCULAR VOLUME 83.3 fl (80.0-96.0); MONO # 0.4 10^3/uL (0.0-0.8); MONO % 7.6 % (2.0-8.0); NEUTROPHILS # 3.1 10^3/uL (1.5-8.5); PLATELET COUNT, AUTOMATED 222 10^3/uL (150-450); RED BLOOD COUNT 4.66 10^6/uL (4.00-5.40); WHITE BLOOD COUNT 5.3 10^3/uL (4.0-10.0)
[2024-01-04 18:56] LABS: ALBUMIN 3.8 G/DL (3.2-5.2); ALKALINE PHOSPHATASE 96 U/L (46-116); ALT/SGPT 20 U/L (7.0-40); AST/SGOT 17 U/L (<34); BILIRUBIN,TOTAL 0.6 MG/DL (0.3-1.2); BLOOD UREA NITROGEN 16 MG/DL (9-23); CALCIUM LEVEL 9.4 MG/DL (8.3-10.6); CARBON DIOXIDE LEVEL 26 MMOL/L (20-31); CHLORIDE LEVEL 110 MMOL/L (98-107); CHOLESTEROL LEVEL 149 MG/DL (<200); CREATININE FOR GFR 0.73 MG/DL (0.55-1.30); GLOMERULAR FILTRATION RATE > 60.0 (>39); GLUCOSE, FASTING 95 MG/DL (74-106); HDL CHOLESTEROL 45.1 MG/DL (>40); LDL CHOLESTEROL 85.1 MG/DL (<100); NON-HDL-C 103.9 MG/DL; POTASSIUM SERUM 4.3 MMOL/L (3.5-5.1); SODIUM LEVEL 142 MMOL/L (136-145); TOTAL PROTEIN 6.8 G/DL (5.7-8.2); TRIGLYCERIDES LEVEL 94 MG/DL (<150)
[2024-01-04 18:58] LABS: TOTAL 25(OH) VITAMIN D 27.4 NG/ML (20.0-100.0)
[2024-01-04 19:24] LABS: HEMOGLOBIN A1c 5.2 % (4.0-6.0)
== END ==
LOC: M LAB REF 17:08
PROVIDERS: ATTEND Physician Assistant
DX: E78.5 Hyperlipidemia, unspecified (principal); R73.01 Impaired fasting glucose; E55.9 Vitamin D deficiency, unspecified; J32.9 Chronic sinusitis, unspecified

== ENCOUNTER → 2024-01-06 | Outpatient (REF) | payer MEDICARE, MEDICAID | LOC: M LAB REF 12:36 | PROVIDERS: ATTEND Physician Assistant Medical | DX: B34.9 Viral infection, unspecified (principal) ==

== ENCOUNTER → 2024-01-06 | Outpatient (CLI) | payer MEDICARE, MEDICAID | LOC: M LAB 08:06 | PROVIDERS: ATTEND Physician Assistant | DX: B34.9 Viral infection, unspecified (principal); Z13.88 Encounter for screening for disorder due to exposure to contaminants ==

== ENCOUNTER → 2024-01-09 | Outpatient (CLI) | payer MEDICARE, MEDICAID | LOC: M RAD 07:52 | PROVIDERS: ATTEND Physician Assistant Medical | DX: R05.9 Cough, unspecified (principal); Z96.611 Presence of right artificial shoulder joint; Z96.612 Presence of left artificial shoulder joint ==

== ENCOUNTER 2024-02-18 16:25 | Emergency (ER) | payer MEDICARE, MEDICAID ==
[~2024-02-18] VITALS: Ht 157.5 cm; Wt 76.2 kg
[2024-02-18 16:41] VITALS: TEMP 97.5
[2024-02-18 17:36] LABS: BASO # 0.1 10^3/uL (0.0-0.2); BASO % 1.1 % (0.0-1.0); EOS # 0.3 10^3/uL (0.0-0.5); EOS % 6.9 % (0.0-3.0); HEMATOCRIT 38.8 % (36.0-47.0); HEMOGLOBIN 12.4 g/dl (12.0-15.5); LYMPH # 1.1 10^3/uL (1.5-5.0); LYMPH % 26.1 % (24.0-44.0); MEAN CORPUSCULAR HEMOGLOBIN 27.6 pg (27.0-33.0); MEAN CORPUSCULAR VOLUME 86.4 fl (80.0-96.0); MONO # 0.4 10^3/uL (0.0-0.8); NEUTROPHILS # 2.5 10^3/uL (1.5-8.5); NEUTROPHILS % 57.7 % (36.0-66.0); RED BLOOD COUNT 4.49 10^6/uL (4.00-5.40); WHITE BLOOD COUNT 4.4 10^3/uL (4.0-10.0)
[2024-02-18 17:55] LABS: CK-MB VALUE MASS < 1.0 NG/ML (<3.6)
[2024-02-18 17:57] LABS: BLOOD UREA NITROGEN 16 MG/DL (9-23); CALCIUM LEVEL 8.5 MG/DL (8.3-10.6); CARBON DIOXIDE LEVEL 28 MMOL/L (20-31); CHLORIDE LEVEL 109 MMOL/L (98-107); CREATININE FOR GFR 0.75 MG/DL (0.55-1.30); GLOMERULAR FILTRATION RATE > 60.0 (>39); GLUCOSE, FASTING 141 MG/DL (74-106); POTASSIUM SERUM 4.6 MMOL/L (3.5-5.1); SODIUM LEVEL 143 MMOL/L (136-145)
[2024-02-18 18:00] LABS: THYROID STIMULATING HORMONE 4.313 uIU/ML (0.55-4.78)
[2024-02-18 18:02] LABS: CPK CREATINE PHOSPHOKINASE 62 U/L (34-145); MB/CK RELATIVE INDEX 1.61 (< OR =4)
[2024-02-18 19:00] VITALS: BP 118/56; O2SAT 96
[2024-02-18 20:59] LABS: ETHYL ALCOHOL (ETHANOL) < 0.003 % (0.000-0.010)
[2024-02-18 21:01] LABS: ALBUMIN 3.6 G/DL (3.2-5.2); ALKALINE PHOSPHATASE 95 U/L (35-104); ALT/SGPT 17 U/L (7.0-40); AST/SGOT 20 U/L (<34); BILIRUBIN,DIRECT < 0.1 MG/DL (<0.4); BILIRUBIN,TOTAL 0.2 MG/DL (0.3-1.2); MAGNESIUM LEVEL 1.8 MG/DL (1.8-2.4); SALICYLATE LEVEL < 3.0 MG/DL (<30); TOTAL PROTEIN 6.5 G/DL (5.7-8.2)
== END 2024-02-18 19:13 | disposition left against medical advice (07) ==
LOC: EDBD 16:25 → M ED 16:25 → CANBEDREQ 18:55 → M ED 19:13
DX: R55 Syncope and collapse (principal); Z53.9 Procedure and treatment not carried out, unspecified reason; I10 Essential (primary) hypertension; F41.9 Anxiety disorder, unspecified; F32.A Depression, unspecified; K21.9 Gastro-esophageal reflux disease without esophagitis; Z85.3 Personal history of malignant neoplasm of breast; Z85.41 Personal history of malignant neoplasm of cervix uteri; Z86.69 Personal history of other diseases of the nervous system and sense organs; F17.200 Nicotine dependence, unspecified, uncomplicated; Z79.899 Other long term (current) drug therapy

== ENCOUNTER → 2024-04-27 | Outpatient (REF) | payer MEDICARE, OTHER ==
[2024-05-01 12:37] LABS: HPV APTIMA Not Detected (Not Detected)
== END ==
LOC: M SFHCWAGY 13:26
PROVIDERS: ATTEND Obstetrics & Gynecology
DX: Z12.72 Encounter for screening for malignant neoplasm of vagina (principal)
CPT/HCPCS: 87624; G0123

== ENCOUNTER → 2024-04-27 | Outpatient (CLI) | payer MEDICARE, MEDICAID | LOC: M WHC 09:24 | PROVIDERS: ATTEND Obstetrics & Gynecology | DX: Z12.31 Encounter for screening mammogram for malignant neoplasm of breast (principal) ==

== ENCOUNTER → 2024-05-12 | Outpatient (CLI) | payer MEDICARE, MEDICAID | LOC: M SLEEP 20:00 | PROVIDERS: ATTEND Nurse Practitioner Adult Health | DX: G47.33 Obstructive sleep apnea (adult) (pediatric) (principal) ==